=== PATIENT | female | born 1935 | race Caucasian/White ===

== ENCOUNTER 2020-04-25 09:31 | Outpatient (REF) | payer MEDICARE, SELFPAY ==
[2020-04-25 11:59] LABS: Alanine Aminotransferase 10 U/L (0-31); Albumin Level 4.6 g/dL (3.5-5.0); Alkaline Phosphatase 66 U/L (39-117); Anion Gap 16 (12-20); Aspartate Amino Transferase 19 U/L (5-31); Bilirubin Total 0.7 mg/dL (0.0-1.0); Blood Urea Nitrogen 30 mg/dL (9-16); Calcium 9.5 mg/dL (8.4-10.2); Carbon Dioxide 25 mmol/L (22-29); Chloride 101 mmol/L (96-108); Estimated Glomerular Filt Rate 38; Glucose Random 106 mg/dL (60-115); Potassium 4.7 mmol/l (3.3-5.1); Sodium 137 mmol/L (135-145)
[2020-04-25 12:03] LABS: Vitamin D 25-OH Total 47.4 ng/mL (>30)
== END 2020-04-25 09:32 | disposition home or self-care (01) ==
LOC: HO.HMGCLDS 09:31
PROVIDERS: PCP Internal Medicine; Visit Provider Internal Medicine
DX: M81.0 Age-related osteoporosis without current pathological fracture (principal); E55.9 Vitamin D deficiency, unspecified
CPT/HCPCS: 80053; 82306

== ENCOUNTER → 2020-05-01 11:25 | Outpatient (BNVA) | payer MEDICARE, SELFPAY | PROVIDERS: PCP Internal Medicine; Referring Provider Internal Medicine; Visit Provider Internal Medicine | DX: Z13.89 Encounter for screening for other disorder (principal) | CPT/HCPCS: Q3014 ==

== ENCOUNTER 2020-05-11 09:00 | Outpatient (REF) | payer MEDICARE, SELFPAY ==
--- NOTE | 2020-05-11 09:05 | MM_ITS ---
EXAMINATION: BONE DENSITOMETRY CLINICAL INDICATION: Osteoporosis. COMPARISON: Previous BD dated 04/14/2018 (spine), 04/22/2018 (left hip), and baseline BD dated 11/13/2006. TECHNIQUE: Using a [employer] DXA System (software version: 13.1) manufactured by [employer], dual-energy x-ray absorptiometry was performed of the lumbar spine and left hip. The images are of good technical quality. Summary results are attached. FINDINGS: AP SPINE L1-L2 (excluding L3 and L4): The data of L1-L4 has been changed to exclude the L3 and L4 vertebral bodies, because degenerative changes at these levels may cause overestimation of lumbar spine density. Current: BMD 0.840 g/cm2, Z-score 0.0, T-score -2.7, osteoporosis, 36.6% increase from previous, 9.7% increase from baseline (<5% change is not significant). Prior: BMD 0.615 g/cm2. Baseline: BMD 0.766 g/cm2. LEFT FEMUR, NECK: Current: BMD 0.634 g/cm2, Z-score -0.1, T-score -2.9, osteoporosis. Prior: BMD 0.608 g/cm2. Baseline: BMD 0.734 g/cm2. LEFT FEMUR, TOTAL: Current: BMD 0.630 g/cm2, Z-score -0.2, T-score -3.0, osteoporosis, 7.9% increase from previous, 18.2% decrease from baseline (<5% change is not significant). Prior: BMD 0.584 g/cm2. Baseline: BMD 0.770 g/cm2. IDENTIFIED RISK FACTORS: Osteoporosis. Early menopause, secondary osteoporosis. HISTORY OF FRACTURE: None listed. MEDICATIONS: Calcium supplements or multivitamin, vitamin D. MM/XR DEXA axial skeleton IMPRESSION: 1. DIAGNOSIS: Osteoporosis based on the lowest T-score value of -3.0 in the total femur applying World Health Organization criteria. 2. 10-YEAR FRACTURE RISK PREDICTION, FRAX: Major osteoporotic fracture (clinical spine, forearm, hip or shoulder) 17.7%. Hip fracture 7.7%. 3. Treatment Recommendations: NOF guidelines recommend consideration for treatment in postmenopausal women and men age 50 and older presenting with the following: -A hip or vertebral (clinical or morphometric) fracture. -T-score less than or equal to -2.5 at the femoral neck or spine after appropriate evaluation to exclude secondary causes. -Low bone mass at the hip or spine and a 10-year fracture probability by FRAX of greater than or equal to 3% for hip fracture or greater than or equal to 20% for major osteoporotic fracture based on the [place] adapted WHO algorithm. 4. Other Recommendations: All treatment decisions require clinical judgment and consideration of individual patient factors, including patient preferences, comorbidities, previous drug use, risk factors not captured in the FRAX model (e.g. frailty, falls, vitamin D deficiency, increased bone turnover, interval significant decline in bone density) and possible under or overestimation of fracture risk by FRAX. Additional medical evaluation for secondary cause of low bone mineral density may be appropriate. FUTURE SCAN RECOMMENDATION: People with diagnosed cases of osteoporosis or at high risk for fracture should have regular bone mineral density tests. For patients eligible for Medicare, routine testing is allowed once every 2 years. The testing frequency can be increased to one year for patients who have rapidly progressing disease, those who are receiving or discontinuing medical therapy to restore bone mass, or have additional risk factors.
== END 2020-05-11 09:01 | disposition home or self-care (01) ==
LOC: HO.MAMMO 09:00
PROVIDERS: Visit Provider Internal Medicine
DX: M81.0 Age-related osteoporosis without current pathological fracture (principal)
CPT/HCPCS: 77080

== ENCOUNTER → 2020-06-21 11:39 | Outpatient (BNVA) | payer MEDICARE, SELFPAY | PROVIDERS: PCP Internal Medicine; Visit Provider Internal Medicine | DX: Z76.89 Persons encountering health services in other specified circumstances (principal) | CPT/HCPCS: Q3014 ==

== ENCOUNTER 2020-07-04 10:03 | Outpatient (REF) | payer MEDICARE, SELFPAY ==
[2020-07-04 12:10] LABS: Albumin Level 4.4 g/dL (3.5-5.0); Blood Urea Nitrogen 24 mg/dL (9-16); Calcium 9.3 mg/dL (8.4-10.2); Estimated Glomerular Filt Rate 41; Phosphorus 3.7 mg/dL (2.7-4.5)
[2020-07-04 12:13] LABS: Vitamin D 25-OH Total 39.2 ng/mL (>30)
[2020-07-06 12:01] LABS: Calcium (PTHI) 9.6 mg/dL (8.6-10.4); PTHI 37 pg/mL (14-64)
== END 2020-07-04 10:04 | disposition home or self-care (01) ==
LOC: HO.HMGCLDS 10:03
PROVIDERS: PCP Internal Medicine; Visit Provider Internal Medicine
DX: M81.0 Age-related osteoporosis without current pathological fracture (principal); E55.9 Vitamin D deficiency, unspecified
CPT/HCPCS: 36415; 82040; 82306; 82310; 82565; 83970; 84100; 84520

== ENCOUNTER 2020-08-09 09:00 | Outpatient (REF) | payer OTHER, SELFPAY ==
[2020-08-09 17:51] LABS: Alanine Aminotransferase 13 U/L (0-31); Anion Gap 14 (12-20); Aspartate Amino Transferase 14 U/L (5-31); Blood Urea Nitrogen 26 mg/dL (9-16); Calcium 9.4 mg/dL (8.4-10.2); Carbon Dioxide 25 mmol/L (22-29); Chloride 105 mmol/L (96-108); Cholesterol 196 mg/dL; Estimated Glomerular Filt Rate 36; Glucose Fasting 102 mg/dL (60-99); HDL Cholesterol 76 mg/dL; LDL Cholesterol Calculated 98 mg/dl; Potassium 4.7 mmol/L (3.3-5.1); Sodium 139 mmol/L (135-145); Triglycerides 114 mg/dL
[2020-08-09 18:05] LABS: Vitamin D 25-OH Total 40.3 ng/mL (>30)
== END 2020-08-09 09:01 | disposition home or self-care (01) ==
LOC: HO.HMGCLDS 09:00
PROVIDERS: PCP Internal Medicine; Visit Provider Internal Medicine
DX: E78.5 Hyperlipidemia, unspecified (principal); I10 Essential (primary) hypertension; M81.0 Age-related osteoporosis without current pathological fracture
CPT/HCPCS: 36415; 80048; 80061; 82306; 84450; 84460

== ENCOUNTER → 2020-10-16 10:04 | Outpatient (BNVA) | payer OTHER, SELFPAY | PROVIDERS: PCP Internal Medicine; Visit Provider Internal Medicine | CPT/HCPCS: Q3014 ==

== ENCOUNTER → 2020-10-31 09:18 | Outpatient (BNVA) | payer OTHER, SELFPAY | PROVIDERS: PCP Internal Medicine; Visit Provider Nurse Practitioner Gerontology | DX: M81.0 Age-related osteoporosis without current pathological fracture (principal) | CPT/HCPCS: 96372 ==

== ENCOUNTER 2020-11-14 08:32 | Outpatient (REF) | payer OTHER, SELFPAY ==
[2020-11-14 12:08] LABS: Albumin Level 4.6 g/dL (3.5-5.0); Calcium 10.1 mg/dL (8.4-10.2); Estimated Glomerular Filt Rate 41
[2020-11-14 12:11] LABS: Vitamin D 25-OH Total 48.4 ng/mL (>30)
[2020-11-15 13:51] LABS: Calcium (PTHI) 9.5 mg/dL (8.6-10.4); PTHI 32 pg/mL (14-64)
== END 2020-11-14 08:33 | disposition home or self-care (01) ==
LOC: HO.HMGCLDS 08:32
PROVIDERS: PCP Internal Medicine; Visit Provider Internal Medicine
DX: M81.0 Age-related osteoporosis without current pathological fracture (principal); E55.9 Vitamin D deficiency, unspecified
CPT/HCPCS: 36415; 82040; 82306; 82310; 82565; 83970

== ENCOUNTER 2021-05-09 09:06 | Outpatient (REF) | payer OTHER, SELFPAY ==
[2021-05-09 11:25] LABS: MANUAL DIFF FLAG NO
[2021-05-09 11:30] LABS: Basophils Absolute Auto 0.1 X10*3/uL (0.0-0.2); Eosinophils Percent Auto 12.6 % (0-4); Hematocrit 35.6 % (37.0-47.0); Hemoglobin 11.4 g/dl (12.0-16.0); Imm Gran Abs Auto 0.03 X10*3/uL (0.00-0.03); Imm Gran Pct Auto 0.4 % (0.0-0.4); Lymphocytes Absolute Auto 2.8 X10*3/uL (1.2-4.9); Lymphocytes Percent Auto 36.5 % (20-40); Mean Corpuscular Hemoglobin 30.6 pg (27.0-33.0); Mean Corpuscular Volume 95.7 fL (80.0-98.0); Mean Platelet Volume 11.1 fL (9.4-12.3); Monocytes Absolute Auto 0.5 X10*3/uL (0.1-1.2); Monocytes Percent Auto 6.9 % (2-11); Neutrophils Absolute Auto 3.3 x10*3/uL (2.0-8.3); Neutrophils Percent Auto 42.6 % (45-73); Platelet Count 299 X10*3/uL (160-400); Red Blood Count 3.72 X10*6/uL (4.20-5.50); Red Cell Distribution Width 12.9 % (11.0-16.0); White Blood Count 7.7 X10*3/uL (4.8-10.8)
[2021-05-09 12:03] LABS: Alanine Aminotransferase 16 U/L (0-31); Albumin Level 4.5 g/dL (3.5-5.0); Alkaline Phosphatase 48 U/L (39-117); Anion Gap 14 (12-20); Aspartate Amino Transferase 18 U/L (5-31); Bilirubin Total 0.8 mg/dL (0.0-1.0); Blood Urea Nitrogen 23 mg/dL (9-16); Calcium 10.5 mg/dL (8.4-10.2); Carbon Dioxide 26 mmol/L (22-29); Chloride 105 mmol/L (96-108); Cholesterol 213 mg/dL; Estimated Glomerular Filt Rate 34; Glucose Fasting 108 mg/dL (60-99); HDL Cholesterol 77 mg/dL; LDL Cholesterol Calculated 115 mg/dl; Potassium 4.5 mmol/L (3.3-5.1); Sodium 140 mmol/L (135-145); Total Protein 6.7 g/dL (6.5-8.0); Triglycerides 108 mg/dL
[2021-05-10 12:26] LABS: Calcium (PTHI) 10.2 mg/dL (8.6-10.4); PTHI 23 pg/mL (14-64)
[2021-05-15 05:06] LABS: N-Telopeptide 18 (see note); NTXCreaRU 99 mg/dL (20-275)
== END 2021-05-09 09:07 | disposition home or self-care (01) ==
LOC: HO.HMGCLDS 09:06
PROVIDERS: Internal Medicine; PCP Internal Medicine; Visit Provider Internal Medicine
DX: I10 Essential (primary) hypertension (principal); E55.9 Vitamin D deficiency, unspecified; Z00.00 Encounter for general adult medical examination without abnormal findings; R73.01 Impaired fasting glucose; M81.0 Age-related osteoporosis without current pathological fracture; E78.5 Hyperlipidemia, unspecified; N18.9 Chronic kidney disease, unspecified; Z23 Encounter for immunization; Z79.899 Other long term (current) drug therapy
CPT/HCPCS: 36415; 80048; 80053; 80061; 82306; 82523; 83970; 85025; 96372; 99212

== ENCOUNTER → 2021-11-07 09:21 | Outpatient (BNVA) | payer OTHER, SELFPAY | PROVIDERS: PCP Internal Medicine; Visit Provider Internal Medicine | DX: M81.0 Age-related osteoporosis without current pathological fracture (principal); N18.9 Chronic kidney disease, unspecified; E55.9 Vitamin D deficiency, unspecified | CPT/HCPCS: Q3014 ==

== ENCOUNTER 2021-11-08 07:19 | Outpatient (REF) | payer OTHER, SELFPAY ==
[2021-11-08 11:57] LABS: Alanine Aminotransferase 12 U/L (0-31); Albumin Level 4.5 g/dL (3.5-5.0); Alkaline Phosphatase 39 U/L (39-117); Anion Gap 14 (12-20); Aspartate Amino Transferase 18 U/L (5-31); Bilirubin Total 0.8 mg/dL (0.0-1.0); Blood Urea Nitrogen 26 mg/dL (9-16); Carbon Dioxide 25 mmol/L (22-29); Chloride 103 mmol/L (96-108); Estimated Glomerular Filt Rate 39; Glucose Random 108 mg/dL (60-115); Phosphorus 4.1 mg/dL (2.7-4.5); Potassium 4.9 mmol/L (3.3-5.1); Sodium 137 mmol/L (135-145); Total Protein 6.7 g/dL (6.5-8.0)
[2021-11-08 12:01] LABS: Vitamin D 25-OH Total 65.1 ng/mL (>30)
[2021-11-09 13:08] LABS: Calcium (PTHI) 10.4 mg/dL (8.6-10.4); PTHI 24 pg/mL (16-77)
== END 2021-11-08 07:20 | disposition home or self-care (01) ==
LOC: HO.HMGCLDS 07:19
PROVIDERS: Visit Provider Internal Medicine
DX: E55.9 Vitamin D deficiency, unspecified (principal); M81.0 Age-related osteoporosis without current pathological fracture
CPT/HCPCS: 36415; 80053; 82306; 83970; 84100

== ENCOUNTER → 2021-11-12 10:06 | Outpatient (BNVA) | payer OTHER, SELFPAY | PROVIDERS: PCP Internal Medicine; Visit Provider Internal Medicine | DX: M81.0 Age-related osteoporosis without current pathological fracture (principal) | CPT/HCPCS: 96372 ==

== ENCOUNTER 2022-05-11 08:42 | Outpatient (REF) | payer OTHER, SELFPAY ==
[2022-05-11 11:28] LABS: Alanine Aminotransferase 13 U/L (0-31); Albumin Level 4.6 g/dL (3.5-5.0); Alkaline Phosphatase 42 U/L (39-117); Anion Gap 14 (12-20); Aspartate Amino Transferase 18 U/L (5-31); Bilirubin Total 0.6 mg/dL (0.0-1.0); Blood Urea Nitrogen 28 mg/dL (9-16); Calcium 10.1 mg/dL (8.4-10.2); Carbon Dioxide 25 mmol/L (22-29); Chloride 105 mmol/L (96-108); Estimated Glomerular Filt Rate 41; Glucose Random 105 mg/dL (60-115); Phosphorus 3.3 mg/dL (2.7-4.5); Potassium 4.6 mmol/L (3.3-5.1); Sodium 139 mmol/L (135-145); Total Protein 6.7 g/dL (6.5-8.0)
[2022-05-11 11:46] LABS: Vitamin D 25-OH Total 87.5 ng/mL (>30)
[2022-05-13 15:39] LABS: Calcium (PTHI) 9.9 mg/dL (8.6-10.4); PTHI 30 pg/mL (16-77)
[2022-05-16 17:08] LABS: N-Telopeptide 14 (see note); NTXCreaRU 111 mg/dL (20-275)
== END 2022-05-11 08:43 | disposition home or self-care (01) ==
LOC: HO.HMGCLDS 08:42
PROVIDERS: PCP Internal Medicine; Visit Provider Internal Medicine
DX: M81.0 Age-related osteoporosis without current pathological fracture (principal); E55.9 Vitamin D deficiency, unspecified
CPT/HCPCS: 36415; 80053; 82306; 82523; 83970; 84100

== ENCOUNTER → 2022-05-13 09:59 | Outpatient (BNVA) | payer OTHER, SELFPAY | PROVIDERS: PCP Internal Medicine; Visit Provider Internal Medicine | DX: M81.0 Age-related osteoporosis without current pathological fracture (principal); N18.9 Chronic kidney disease, unspecified; E55.9 Vitamin D deficiency, unspecified; Z78.0 Asymptomatic menopausal state; Z79.899 Other long term (current) drug therapy | CPT/HCPCS: 96372; 99212 ==

== ENCOUNTER 2022-05-21 14:06 | Outpatient (REF) | payer OTHER, SELFPAY ==
--- NOTE | ~2022-05-21 | MM_ITS ---
EXAMINATION: BONE DENSITOMETRY CLINICAL INDICATION: Age-related osteoporosis without current pathological fracture. COMPARISON: Previous BD dated 05/11/2020 and baseline BD dated 11/13/2006. TECHNIQUE: Using a [employer]On DXA System (software version: 13.1) manufactured by [employer], dual-energy x-ray absorptiometry was performed of the lumbar spine, left hip and left forearm radius 33%. The images are of good technical quality. Summary results are attached. FINDINGS: AP SPINE L1-L2 (excluding L3 and L4): The data of L1-L4 has been changed to exclude the L3 and L4 vertebral bodies, because degenerative changes at these levels may cause overestimation of lumbar spine density. Current: BMD 0.941 g/cm2, Z-score 0.9, T-score -1.9, osteopenia, 12.0% increase from previous, 22.8% increase from baseline (<5% change is not significant). Prior: BMD 0.840 g/cm2. Baseline: BMD 0.766 g/cm2. LEFT FEMUR, NECK: Current: BMD 0.716 g/cm2, Z-score 0.6, T-score -2.3, osteopenia. Prior: BMD 0.634 g/cm2. Baseline: BMD 0.734 g/cm2. LEFT FEMUR, TOTAL: Current: BMD 0.635 g/cm2, Z-score -0.1, T-score -3.0, osteoporosis, 0.8% increase from previous, 17.5% decrease from baseline (<5% change is not significant). Prior: BMD 0.630 g/cm2. Baseline: BMD 0.770 g/cm2. LEFT FOREARM RADIUS 33%: BMD 0.440 g/cm2, Z-score -1.8, T-score -5.0, osteoporosis. Prior: Not previously measured. IDENTIFIED RISK FACTORS: Osteoporosis. Dementia. Secondary osteoporosis (early menopause, hyperthyroidism). HISTORY OF FRACTURE: None listed. MEDICATIONS: Calcium supplement or multivitamin. Vitamin D. MM/XR DEXA appendicular skeleton IMPRESSION: 1. DIAGNOSIS: Osteoporosis based on the lowest T-score value of -5.0 in the left forearm radius 33% applying World Health Organization criteria. 2. 10-YEAR FRACTURE RISK PREDICTION, FRAX: According to the guidelines, FRAX calculation should only be performed on patients in the osteopenia bone density category. Therefore, FRAX was not performed on this patient.? 3. Treatment Recommendations: NOF guidelines recommend consideration for treatment in postmenopausal women and men age 50 and older presenting with the following: -A hip or vertebral (clinical or morphometric) fracture. -T-score less than or equal to -2.5 at the femoral neck or spine after appropriate evaluation to exclude secondary causes. -Low bone mass at the hip or spine and a 10-year fracture probability by FRAX of greater than or equal to 3% for hip fracture or greater than or equal to 20% for major osteoporotic fracture based on the [place] adapted WHO algorithm. 4. Other Recommendations: All treatment decisions require clinical judgment and consideration of individual patient factors, including patient preferences, comorbidities, previous drug use, risk factors not captured in the FRAX model (e.g. frailty, falls, vitamin D deficiency, increased bone turnover, interval significant decline in bone density) and possible under or overestimation of fracture risk by FRAX. Additional medical evaluation for secondary cause of low bone mineral density may be appropriate. FUTURE SCAN RECOMMENDATION: People with diagnosed cases of osteoporosis or at high risk for fracture should have regular bone mineral density tests. For patients eligible for Medicare, routine testing is allowed once every 2 years. The testing frequency can be increased to one year for patients who have rapidly progressing disease, those who are receiving or discontinuing medical therapy to restore bone mass, or have additional risk factors.
== END 2022-05-21 14:07 | disposition home or self-care (01) ==
LOC: HO.MAMMO 14:06
PROVIDERS: PCP Internal Medicine; Visit Provider Internal Medicine
DX: Z13.820 Encounter for screening for osteoporosis (principal); Z78.0 Asymptomatic menopausal state; M81.0 Age-related osteoporosis without current pathological fracture
CPT/HCPCS: 77081

== ENCOUNTER 2022-11-11 10:08 | Outpatient (AMB) | payer OTHER, SELFPAY ==
--- NOTE | 2022-11-11 10:08 | MHC.OFFVIS ---
Intake Intake Visit Reasons: F/U Osteoporosis with Prolia Allergies No Known Allergies Allergy (Verified 11/11/22 10:16) Medication List - Last Reconciled 11/11/22 by Lizet Bearden, DO atorvastatin 10 mg PO DAILY coenzyme Q10 (Ultra CoQ10) 50 mg PO DAILY denosumab (Prolia) 60 mg subcut [id number] ibuprofen (Advil) 200 mg PO Q6H PRN lisinopril 10 mg PO DAILY HPI HPI Comments History of Present Illness Details 87 YO Female with PMHx Osteoporosis is seen in F/U for Osteoporosis. First diagnosed in 2004 with her first screening DEXA scan. Received treatment in the past with Fosamax, beginning in 2009 for 3 years, and then this was stopped. She reports that it was started again in April of 2018 after her most recent BMD revealed severe Osteoporosis of the spine, with Osteoporosis of the hip, and a significant decline in BMD in all areas. Tolerated treatment well without complication, but then stopped it again after 3-4 months of therapy. She began Tymlos 02/04/2019 and completed therapy 10/2020. She then transitioned to Prolia 10/31/2020. She has received 4 doses so far. After her initial consultation with me she had a full workup for secondary causes of Osteoporosis. This did reveal low urine calcium, but this was an inadequate collection. She also was found to have high normal serum Calcium, but this has remained WNL. No history of pathologic fracture or ONJ. Has 3 servings of dietary calcium per day in the form of an 8 oz glass of milk, a 4 oz yogurt, and 1 oz of cheese. Takes Calcium Carbonate 600 mg PO daily. Takes 1000 IU of Vitamin D daily. Denies ever using PPI, anticoagulant, antiepileptic or glucocorticoid medication. Does weight bearing exercise 5-7 days per week in the form of walking, and also does an exercise class at the [facility] center. Fracture history: Denies. Height loss: Denies. [employer] WORK[employer] history: Menarche age 16. Menses was always regular. , did not breastfeed. Menopause was age 39. Never used HRT. History of Kidney stones: Denies. Family history of Osteoporosis or hip fracture. Has full dentures. Does see the dentist twice a year. DXA: 05/21/2022 FINDINGS: AP SPINE L1-L2 (excluding L3 and L4): The data of L1-L4 has been changed to exclude the L3 and L4 vertebral bodies, because degenerative changes at these levels may cause overestimation of lumbar spine density. Current: BMD 0.941 g/cm2, Z-score 0.9, T-score -1.9, osteopenia, 12.0% increase from previous, 22.8% increase from baseline (<5% change is not significant). Prior: BMD 0.840 g/cm2. Baseline: BMD 0.766 g/cm2. LEFT FEMUR, NECK: Current: BMD 0.716 g/cm2, Z-score 0.6, T-score -2.3, osteopenia. Prior: BMD 0.634 g/cm2. Baseline: BMD 0.734 g/cm2. LEFT FEMUR, TOTAL: Current: BMD 0.635 g/cm2, Z-score -0.1, T-score -3.0, osteoporosis, 0.8% increase from previous, 17.5% decrease from baseline (<5% change is not significant). Prior: BMD 0.630 g/cm2. Baseline: BMD 0.770 g/cm2. LEFT FOREARM RADIUS 33%: BMD 0.440 g/cm2, Z-score -1.8, T-score -5.0, osteoporosis. Prior:? Not previously measured. Labs: Laboratory Tests 05/09/21 05/09/21 11/08/21 09:28 09:28 09:32 Creatinine Estimated GFR 34 Albumin N-Telopeptide X-li nked 18 25-OH Vitamin D To geovani PTH Intact 24 Calcium (PTH Intac t) 10.4 05/11/22 08:48 Creatinine 1.25 :Estimated GFR 41 Albumin 4.6 N-Telopeptide X-li nked 25-OH Vitamin D To geovani 87.5 PTH Intact Calcium (PTH Intac t) PFSH Medical History CKD (chronic kidney disease) Dyslipidemia Impaired fasting glucose Memory deficit Osteoporosis Vitamin D deficiency Surgical History No pertinent past surgical history Family History Father No problems noted. Mother No problems noted. Social History Housing: Apartment Alcohol intake: never Patient Tobacco Use Status: Never used Tobacco e-Cigarette/Vaping Use: Never Used Current occupational status: retired Cognitive needs: No Hearing needs: Yes Vision needs: Yes Assessment & Plan Assessment & Plan (1) Osteoporosis: Code(s): M81.0 - Age-related osteoporosis without current pathological fracture Qualifiers: Osteoporosis type: unspecified Presence of current pathological fracture: unspecified Qualified Code(s): M81.0 - Age-related osteoporosis without current pathological fracture Plan: Patient with severe Osteoporosis of the spine, and Osteoporosis of the hip. She completed 18 months of Tymlos therapy and has transitioned to Prolia with 4 doses so far. She received her last dose 05/13/2022. She is due now. She will repeat labs now and then will be scheduled for her Prolia. She will then F/U 6 months later for her next injection. We discussed potential ADRs of flu like symptoms with body aches, osteonecrosis of the jaw and atypical fracture. All questions were answered. All of her questions were answered. She is in agreement with this plan of care. I spent 20 minutes in reviewing the record, speaking with the patient and documenting in the medical record, including 5 minutes on the phone with the Patient. (2) CKD (chronic kidney disease): Code(s): N18.9 - Chronic kidney disease, unspecified Qualifiers: Chronic kidney disease stage: unspecified stage Qualified Code(s): N18.9 - Chronic kidney disease, unspecified Plan: Patient with an abrupt decline in her GFR. Bisphosphonates are contraindicated. Telehealth Telehealth Location of provider rendering services: practice address Location of patient: address on file Patient Identification confirmed using: Name, : Yes Telehealth method: voice only Patient verbally consented to treatment: Yes Patient verbally consented to billing insurance company: Yes Patient informed of any privacy concerns related to visit: Yes Coding Level of Care Code Tele Est Pt Level 3 (11834) Diagnoses Osteoporosis M81.0 Osteoporosis type: unspecified Presence of current pathological fracture: unspecified CKD (chronic kidney disease) N18.9 Chronic kidney disease stage: unspecified stage
== END 2022-11-11 10:22 | disposition home or self-care (01) ==
LOC: HO.ENCR 10:08
PROVIDERS: PCP Internal Medicine; Visit Provider Internal Medicine
DX: M81.0 Age-related osteoporosis without current pathological fracture (principal); N18.9 Chronic kidney disease, unspecified
CPT/HCPCS: 99443

== ENCOUNTER → 2022-11-11 10:08 | Outpatient (BNVA) | payer OTHER, SELFPAY | PROVIDERS: PCP Internal Medicine; Visit Provider Internal Medicine ==

== ENCOUNTER 2022-11-12 08:50 | Outpatient (REF) | payer OTHER, SELFPAY ==
[2022-11-12 12:02] LABS: Alanine Aminotransferase 16 U/L (0-31); Albumin Level 4.6 g/dL (3.5-5.0); Alkaline Phosphatase 43 U/L (39-117); Anion Gap 15 (12-20); Aspartate Amino Transferase 20 U/L (5-31); Bilirubin Total 0.7 mg/dL (0.0-1.0); Blood Urea Nitrogen 28 mg/dL (9-16); Calcium 10.3 mg/dL (8.4-10.2); Carbon Dioxide 21 mmol/L (22-29); Chloride 106 mmol/L (96-108); Estimated Glomerular Filt Rate 43; Glucose Random 111 mg/dL (60-115); Phosphorus 3.1 mg/dL (2.7-4.5); Potassium 4.2 mmol/L (3.3-5.1); Sodium 138 mmol/L (135-145); Total Protein 6.9 g/dL (6.5-8.0)
[2022-11-12 12:06] LABS: Vitamin D 25-OH Total 123.5 ng/mL (>30)
[2022-11-14 04:38] LABS: Calcium (PTHI) 10.6 mg/dL (8.6-10.4); PTHI 33 pg/mL (16-77)
[2022-11-20 16:38] LABS: N-Telopeptide 23 (see note); NTXCreaRU 185 mg/dL (20-275)
== END 2022-11-12 08:51 | disposition home or self-care (01) ==
LOC: HO.HMGCLDS 08:50
PROVIDERS: PCP Internal Medicine; Visit Provider Internal Medicine
DX: M81.0 Age-related osteoporosis without current pathological fracture (principal); E55.9 Vitamin D deficiency, unspecified
CPT/HCPCS: 36415; 80053; 82306; 82523; 83970; 84100

== ENCOUNTER 2022-11-15 08:45 | Outpatient (AMB) | payer OTHER, SELFPAY ==
--- NOTE | 2022-11-15 09:20 | AM.OFFVISNUR ---
Intake Intake Visit Reasons: Prolia Allergies No Known Allergies Allergy (Verified 11/11/22 10:16) Office Meds Prolia Performing Provider: Lizet Bearden DO Administered by: Dominik Edge RN on 11/15/22 09:10 Dose Route Admin Location Lot Number Expiration Date NDC Customer Solutions Architect 60 mg subcut left arm [id number] 01/02/25 05608-878-93 AMGEN Comments: consent obtained for prolia injection Coding Diagnoses Assessment & Plan Assessment & Plan Orders: Orders AMB Denosumab Injection Patient Supplied Today M81.0 - Age-related osteoporosis without current pathological fracture
== END 2022-11-15 09:15 | disposition home or self-care (01) ==
PROVIDERS: PCP Internal Medicine; Visit Provider Internal Medicine
DX: M81.0 Age-related osteoporosis without current pathological fracture (principal)
CPT/HCPCS: J0897

== ENCOUNTER → 2022-11-15 08:45 | Outpatient (BNVA) | payer OTHER, SELFPAY | PROVIDERS: PCP Internal Medicine; Visit Provider Internal Medicine | DX: M81.0 Age-related osteoporosis without current pathological fracture (principal) | CPT/HCPCS: 96372 ==

== ENCOUNTER 2022-11-30 09:03 | Outpatient (REF) | payer OTHER, SELFPAY ==
[2022-11-30 11:30] LABS: Estimated Glomerular Filt Rate 46
[2022-12-02 13:22] LABS: Calcium (PTHI) 9.7 mg/dL (8.6-10.4); PTHI 44 pg/mL (16-77)
== END 2022-11-30 09:04 | disposition home or self-care (01) ==
LOC: HO.HMGCLDS 09:03
PROVIDERS: PCP Internal Medicine; Visit Provider Internal Medicine
DX: M81.0 Age-related osteoporosis without current pathological fracture (principal)
CPT/HCPCS: 36415; 82310; 82565; 83970

== ENCOUNTER 2023-02-06 09:59 | Outpatient (AMB) | payer OTHER, SELFPAY ==
[2023-02-06 10:01] VITALS: BP 130/60; PULSE 72; O2SAT 100; BMI 18.6
--- NOTE | 2023-02-06 10:01 | MHC.PC.OV ---
Vital Signs 02/06/23 10:01 Height 4 ft 10 in Weight 89 lb BMI 18.6 BP 130/60 Blood Pressure Location Rt brachial Position Sitting Pulse 72 Pulse Source Pulse Oximeter Pulse Oximetry (%) 100 Oxygen Delivery Method Room Air Intake Visit Reasons: follow up needs meds Intake Note: patient is here today for med f/u Allergies No Known Allergies Allergy (Verified 02/06/23 10:44) Medication List - Last Reconciled 02/06/23 by Kassidy Moreno MD atorvastatin 10 mg PO DAILY coenzyme Q10 (Ultra CoQ10) 50 mg PO DAILY denosumab (Prolia) 60 mg subcut [id number] ibuprofen (Advil) 200 mg PO Q6H PRN lisinopril 10 mg PO DAILY Tobacco use date assessed: 02/06/23 Fall risk assessment: No Falls in past year Last assessed Fall Risk: 02/06/23 Dental Screening Dental Screen Date: 02/06/23 Did you have a dental visit in the last 12 months?: No Did you have a dental problem in the last 6 months where you did not have access to dental care?: No Was dental information given to patient?: Patient has dentist [facility] Medical History (Updated 02/06/23 @ 11:00 by Kassidy Moreno MD) Hearing impaired Memory deficit Dyslipidemia Impaired fasting glucose CKD (chronic kidney disease) Vitamin D deficiency Osteoporosis Surgical History No pertinent past surgical history Family History Father No problems noted. Mother No problems noted. Social History Housing: Apartment Alcohol intake: never Patient Tobacco Use Status: Never used Tobacco e-Cigarette/Vaping Use: Never Used Current occupational status: retired Cognitive needs: No Hearing needs: Yes Vision needs: Yes Questionnaire PHQ-9 Over the last 2 weeks, how often have you been bothered by any of the following problems? 1. Little interest or pleasure in doing things: not at all 2. Feeling down, depressed, or hopeless: not at all 3. Trouble falling or staying asleep, or sleeping too much: not at all 4. Feeling tired or having little energy: not at all 5. Poor appetite or overeating: not at all 6. Feeling bad about yourself - or that you are a failure or have let yourself or your family down: not at all 7. Trouble concentrating on things, such as reading the newspaper or watching television: not at all 8. Moving or speaking so slowly that other people could have noticed. Or the opposite - being so fidgety or restless that you have been moving around a lot more than usual: not at all 9. Thoughts that you would be better off or of hurting yourself in some way: not at all Total score: 0 07877 - PHQ-9 Billing: Yes Source: Developed by Drs. Carlitos Mejia, Oumou Bowen, Brad Austin and colleagues, with an educational otilia from [employer]. Thrive Questionnaire Date Thrive assessed: 02/06/23 I am a: Patient What is your living situation today?: I have a steady place to live Within the past 12 months, did the food you bought not last and you didn't have the money to get more?: Never true Within the past 12 months, did you worry whether your food would run out before you got money to buy more?: Never true Do you have trouble paying for medicines?: No Do you have trouble getting transportation to medical appointments?: No Do you have trouble paying your heating and electricity bill?: No Do you have trouble taking care of your child, family member or friend?: No Do you have trouble with day-to-day activities such as bathing, preparing meals, shopping, managing finances, etc.?: No Are you currently unemployed and looking for a job?: No Are you interested in more education?: No AUDIT C Alcohol Use Questionnaire (AUDIT-C) 1. How often do you have a drink containing alcohol?: Never Total Score: 0 MONCHO-7 AMB Questionnaire MONCHO-7 Date MONCHO - 7 assessed: 02/06/23 Feeling nervous, anxious, or on edge: 0 = Not at all Not being able to stop or control worryin = Not at all Worrying too much about different things: 0 = Not at all Trouble relaxin = Not at all Being so restless that it is hard to sit still: 0 = Not at all Becoming easily annoyed or irritable: 1 = Several days Feeling afraid as if something awful might happen: 0 = Not at all Total MONCHO-7 score (0-4 normal; 5-9 mild; 10-14 moderate; 15-21 severe): 1 Source: Developed by Drs. Carlitos Mejia, Oumou Bowen, Brad Austin and colleagues, with an educational otilia from [employer] [place]. MONCHO-7 Assessment Billing MONCHO-7 Assessment Tool: MONCHO-7 Assessment 94063 Physical exam (Primary Care) Vital Signs: Last Vital Signs Pulse 72 02/06/23 10:01 BP 130/60 02/06/23 10:01 Pulse Ox 100 02/06/23 10:01 Oxygen Delivery Method Room Air 02/06/23 10:01 BMI result Body Mass Index 18.6 Tobacco/Smoking Status: Tobacco use Status Tobacco use date assessed 02/06/23 02/06/23 10:22 Patient Tobacco Use Status Never used Tobacco 02/06/23 10:02 e-Cigarette/Vaping Use Never Used 02/06/23 10:02 PHQ-9: PHQ-9 Score PHQ-9: Total score 0 02/06/23 11:01 Thrive Assessment: Date of Thrive Assessment Date Thrive assessed 02/06/23 02/06/23 10:33 Immunizations pneumoc 20-river conj-dip cr(PF) 0.5 mL IM syringe Performing Provider: Kassidy Moreno MD Performing Location: [facility] Administered by: Anca Martins CMA on 02/06/23 11:58 Dose Route Admin Location Dispensed Lot Number Expiration Date [facility] Coat Maker 0.5 mL IM Left Deltoid 0.5 mL [id number] 03/04/24 [employer]/PFIZER VIS Given Date VIS Provided VIS Publication Date 02/06/23 Single Vaccine 21 Eligibility Eligibility Date Funding Source Not [facility] Eligible 02/06/23 Private Assessment and Plan Assessment & Plan (1) Dyslipidemia: Code(s): E78.5 - Hyperlipidemia, unspecified (2) CKD (chronic kidney disease): Code(s): N18.9 - Chronic kidney disease, unspecified Qualifiers: Chronic kidney disease stage: unspecified stage Qualified Code(s): N18.9 - Chronic kidney disease, unspecified (3) Impaired fasting glucose: Code(s): R73.01 - Impaired fasting glucose (4) Need for pneumococcal 20-valent conjugate vaccination: Code(s): Z23 - Encounter for immunization Orders: Orders Lipid Panel Today E78.5 - Hyperlipidemia, unspecified, N18.9 - Chronic kidney disease, unspecified, R73.01 - Impaired fasting glucose Basic Metabolic Panel Fasting Today E78.5 - Hyperlipidemia, unspecified, N18.9 - Chronic kidney disease, unspecified, R73.01 - Impaired fasting glucose Hemoglobin A1c Today R73.01 - Impaired fasting glucose Alanine Aminotransferase Today E78.5 - Hyperlipidemia, unspecified, N18.9 - Chronic kidney disease, unspecified, R73.01 - Impaired fasting glucose Aspartate Amino Transferase Today E78.5 - Hyperlipidemia, unspecified, N18.9 - Chronic kidney disease, unspecified, R73.01 - Impaired fasting glucose Pneumococcal 20 Immunization Today Z23 - Encounter for immunization Medications: Refilled atorvastatin Schedule next PCP appt for future refills 10 mg PO DAILY 90 tabs 3RF lisinopril Schedule next PCP appt for future refills 10 mg PO DAILY 90 tabs 3RF Coding Level of Care Code Est Pt Level 3 (28878) Diagnoses Dyslipidemia E78.5 Chronic kidney disease, unspecified CKD stage N18.9 Chronic kidney disease stage: unspecified stage Impaired fasting glucose R73.01 Need for pneumococcal 20-valent conjugate vaccination Z23 Additional Codes MONCHO-7 Assessment Billing - MONCHO-7 Assessment Tool: MONCHO-7 Assessment [id number] ([id number])
== END 2023-02-06 12:20 | disposition home or self-care (01) ==
PROVIDERS: PCP Internal Medicine; Visit Provider Internal Medicine
DX: Z23 Encounter for immunization (principal)
CPT/HCPCS: 90471; 90677

== ENCOUNTER 2023-02-08 08:45 | Outpatient (REF) | payer OTHER, SELFPAY | END 2023-02-08 08:46 | disposition home or self-care (01) | LOC: HO.HMGCLDS 08:45 | PROVIDERS: PCP Internal Medicine; Visit Provider Internal Medicine | DX: E78.5 Hyperlipidemia, unspecified (principal); R73.01 Impaired fasting glucose; N18.9 Chronic kidney disease, unspecified | CPT/HCPCS: 36415; 80048; 80061; 83036; 84450; 84460 ==

== ENCOUNTER 2023-05-22 12:59 | Outpatient (AMB) | payer OTHER, SELFPAY ==
--- NOTE | 2023-05-22 13:35 | AM.OFFVISNUR ---
Intake Intake Visit Reasons: Prolia Allergies No Known Allergies Allergy (Verified 02/06/23 10:44) Office Meds Prolia 60 mg/mL subcutaneous syringe Performing Provider: Carlitos Ash MD Performing Location: [facility] [place] Endocrinology Administered by: Carleen Tomas LPN on 05/22/23 13:35 Dose Route Admin Location Dispensed Lot Number Expiration Date NDC Titrator 60 mg subcut Right upper arm 1 mL [id number] 10/02/25 AMGEN Coding Assessment & Plan Assessment & Plan Orders: Orders AMB Denosumab Injection Patient Supplied Today M81.0 - Age-related osteoporosis without current pathological fracture
== END 2023-05-22 13:37 | disposition home or self-care (01) ==
PROVIDERS: PCP Internal Medicine; Visit Provider Internal Medicine Endocrinology, Diabetes & Metabolism
DX: M81.0 Age-related osteoporosis without current pathological fracture (principal)

== ENCOUNTER → 2023-05-22 12:59 | Outpatient (BNVA) | payer OTHER, SELFPAY | PROVIDERS: PCP Internal Medicine; Visit Provider Internal Medicine Endocrinology, Diabetes & Metabolism | DX: M81.0 Age-related osteoporosis without current pathological fracture (principal) | CPT/HCPCS: 96372; J0897 ==

== ENCOUNTER 2023-07-08 09:34 | Outpatient (AMB) | payer OTHER, SELFPAY ==
[2023-07-08 09:38] VITALS: BP 125/80; PULSE 80; BMI 18.0
--- NOTE | 2023-07-08 09:38 | MHC.PC.OV ---
Vital Signs 07/08/23 09:38 Height 4 ft 10 in Weight 86 lb BMI 18.0 BP 125/80 Blood Pressure Location Lt brachial Position Sitting Pulse 80 Comment unable to get reading on pulse oximetry due to extremely cold extremities Intake Visit Reasons: Annual PE OVERDUE Intake Note: Patient is here today for her Annual Physical. No Mammogram Last Bone Density 05/21/22 Allergies No Known Allergies Allergy (Verified 07/08/23 13:15) Medication List - Last Reconciled 07/08/23 by Kassidy Moreno MD atorvastatin 10 mg PO DAILY coenzyme Q10 (Ultra CoQ10) 50 mg PO DAILY denosumab (Prolia) 60 mg subcut [id number] ibuprofen (Advil) 200 mg PO Q6H PRN lisinopril 10 mg PO DAILY Tobacco use date assessed: 07/08/23 Fall risk assessment: No Falls in past year Last assessed Fall Risk: 07/08/23 Dental Screening Dental Screen Date: 07/08/23 Did you have a dental visit in the last 12 months?: No Did you have a dental problem in the last 6 months where you did not have access to dental care?: No Was dental information given to patient?: No HPI Annual PE OVERDUE HPI Details 88-year-old lady with PMHx Osteoporosis first diagnosed 2004 with her first screening DEXA scan. She received treatment in the past with Fosamax, beginning in 2009 for 3 years, and then this was stopped, and was started again in April of 2018 for 4 months , after her repeat t BMD revealed severe Osteoporosis of the spine, with Osteoporosis of the hip, and a significant decline in BMD in all areas. Tolerated treatment well without complication, but then stopped it again after 3-4 months of therapy. She was switched Tymlos 02/04/2019 and completed therapy 10/2020. She then transitioned to Prolia 10/31/2020 until present time . Her last bone density scan done 05/21/2022 showed osteopenia in her AP spine with a T-score of-1.9, with a 12% increase from previous scan; osteopenia in her left femoral neck with a T-score is 2.3; osteoporosis in her left femur with a T-score of -3 and 0.8% increase from previous scan, and left forearm radius with osteoporosis with a T-score of -5. Has no history of fractures in the past. She has an appointment for follow-up with Dr. Ash now scheduled for is 11/20/2023. She has hyperlipidemia currently on atorvastatin. 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 Her last lipids in February 2023 showed elevated LDL cholesterol at 141 mg/dL. She has hypertension, currently stable controlled on lisinopril. It has been noted that she is losing weight, as per patient she eats like a horse , but her male project manager interior design begs to differ. He has started having her drink ensure every day as a supplement and make sure that she eats her meals regularly. Patient states that she has been feeling well, has no complaints at present time. . [facility] Medical History (Updated 02/06/23 @ 11:00 by Kassidy Moreno MD) Hearing impaired Memory deficit Dyslipidemia Impaired fasting glucose CKD (chronic kidney disease) Vitamin D deficiency Osteoporosis Surgical History (Updated 07/08/23 @ 13:34 by Kassidy Moreno MD) History of cataract surgery Family History Father No problems noted. Mother No problems noted. Social History Housing: Apartment Alcohol intake: never Patient Tobacco Use Status: Never used Tobacco e-Cigarette/Vaping Use: Never Used Current occupational status: retired Cognitive needs: No Hearing needs: Yes Vision needs: Yes Questionnaire PHQ-9 Over the last 2 weeks, how often have you been bothered by any of the following problems? 1. Little interest or pleasure in doing things: not at all 2. Feeling down, depressed, or hopeless: not at all 3. Trouble falling or staying asleep, or sleeping too much: several days 4. Feeling tired or having little energy: more than half the days 5. Poor appetite or overeating: not at all 6. Feeling bad about yourself - or that you are a failure or have let yourself or your family down: not at all 7. Trouble concentrating on things, such as reading the newspaper or watching television: several days 8. Moving or speaking so slowly that other people could have noticed. Or the opposite - being so fidgety or restless that you have been moving around a lot more than usual: more than half the days 9. Thoughts that you would be better off or of hurting yourself in some way: not at all Total score: 6 Depression Screening Interpretation: Negative Depression Screening Done: Yes 79097 - PHQ-9 Billing: Yes Source: Developed by Drs. Carlitos Mejia, Oumou Bowen, Brad Austin and colleagues, with an educational otilia from [employer]. Thrive Questionnaire Date Thrive assessed: 07/08/23 I am a: Patient What is your living situation today?: I have a steady place to live Within the past 12 months, did the food you bought not last and you didn't have the money to get more?: Never true Within the past 12 months, did you worry whether your food would run out before you got money to buy more?: Never true Do you have trouble paying for medicines?: No Do you have trouble getting transportation to medical appointments?: No Do you have trouble paying your heating and electricity bill?: No Do you have trouble taking care of your child, family member or friend?: No Do you have trouble with day-to-day activities such as bathing, preparing meals, shopping, managing finances, etc.?: No Are you currently unemployed and looking for a job?: No Are you interested in more education?: No Please select the resources that you would like help with: None Currently or been in a relationship where the following occur: no concerns reported THRIVE Score: 0 AUDIT C Alcohol Use Questionnaire (AUDIT-C) 1. How often do you have a drink containing alcohol?: Never 3. How often do you have six or more drinks on one occasion?: Never Total Score: 0 Score Reviewed/Action Taken: Yes MONCHO-7 AMB Questionnaire MONCHO-7 Date MONCHO - 7 assessed: 07/08/23 Feeling nervous, anxious, or on edge: 1 = Several days Not being able to stop or control worryin = Nearly every day Worrying too much about different things: 1 = Several days Trouble relaxin = Not at all Being so restless that it is hard to sit still: 0 = Not at all Becoming easily annoyed or irritable: 1 = Several days Feeling afraid as if something awful might happen: 0 = Not at all Total MONCHO-7 score (0-4 normal; 5-9 mild; 10-14 moderate; 15-21 severe): 6 Source: Developed by Drs. Carlitos Mejia, Oumou Bowen, Brad Austin and colleagues, with an educational otilia from [employer]. MONCHO-7 Assessment Billing MONCHO-7 Assessment Tool: MONCHO-7 Assessment 81839 Review of Systems Const Reports daytime sleepiness, Denies fatigue, Denies frequent falls, Denies headache(s) and Reports weight loss Eyes Denies change in vision ENT Denies change in voice, Denies headache(s) and Denies hoarseness Card Denies chest pain, Denies irregular heart rhythm, Denies leg edema, Denies lightheadedness and Denies dyspnea Resp Denies cough and Denies dyspnea GI Denies abdominal pain and Denies change in bowel habits Reports no additional complaints Musc Denies myalgias, Denies muscle cramps, Denies numbness and Denies tingling Neuro Denies frequent falls, Denies headache(s), Denies numbness and Denies tingling Psych Denies depression Endo Denies cold intolerance, Denies fatigue and Denies heat intolerance Hansel/Lymph Denies easy bruising Aller/Immun Reports no additional complaints Physical exam (Primary Care) Vital Signs: Last Vital Signs Pulse 54 07/08/23 09:38 BP 128/62 07/08/23 09:38 Pulse Ox 61 L 07/08/23 09:38 Oxygen Delivery Method Room Air 07/08/23 09:38 BMI result Body Mass Index 17.7 Tobacco/Smoking Status: Tobacco use Status Tobacco use date assessed 07/08/23 07/08/23 09:40 Patient Tobacco Use Status Never used Tobacco 07/08/23 09:40 e-Cigarette/Vaping Use Never Used 07/08/23 09:40 PHQ-9: PHQ-9 Score PHQ-9: Total score 12 07/08/23 10:41 Depression Screening Interpretation: Negative Thrive Assessment: Date of Thrive Assessment Date Thrive assessed 07/08/23 07/08/23 09:58 Currently or been in a relationship where the following occur: no concerns reported Advance Care Planning discussion: Exists, not on file Date of discussion: 07/08/23 Who was present: Patient and male project manager interior design Forms completed: None Time spent: 1-15 minutes, not on file (Advised to bring in copy of her healthcare proxy and will) Actual minutes spent: 15 Const Other: Alert oriented x3, no acute distress noted , normal gaity, accompanied by her male friend APARNA Ears: hearing grossly impaired Face and sinus: Yes face symmetric Mouth: Normal oral and palatal mucosa present, oropharynx normal and moist mucous membranes Eyes General: appearance normal, both eyes and all related structures Neck Neck: Yes full ROM, Yes no lymphadenopathy and Yes supple Resp Auscultation: clear to auscultation bilaterally Cardio Other: S1-S2 present regular rate noted GI Palpation (GI): Soft to palpation, nontender and no guarding Auscultation: normal bowel sounds Neuro General: Normal light touch and pain sensation, no focal motor deficits and CN's II-XI intact bilaterally Extrem Other: Cold fingertips bilateral General: Yes full ROM, Yes no joint enlargement, Yes no pedal edema, Yes no calf tenderness and Yes normal gait Psych Appearance: grossly normal and well kempt Mental Status: mental status grossly normal Affect: normal affect Attitude: cooperative Thought process: Normal thought process present Assessment and Plan Assessment & Plan (1) Annual visit for general adult medical examination with abnormal findings: Code(s): Z00.01 - Encounter for general adult medical examination with abnormal findings Plan: Will check appropriate labs. Advised to eat 3 meals a day, continue with ensure once a day. Patient spends most of her time with her male friend who eats meals with her. No longer gets mammogram or colonoscopy screenings. She has had her COVID vaccines and flu vaccine in the past but does not want to get further vaccination, given her Prevnar 20 last year, declines getting shingles vaccine . (2) Osteoporosis: Code(s): M81.0 - Age-related osteoporosis without current pathological fracture Qualifiers: Osteoporosis type: unspecified Presence of current pathological fracture: unspecified Qualified Code(s): M81.0 - Age-related osteoporosis without current pathological fracture Plan: Currently on Prolia, has an appointment for follow-up with Dr. Ash in November 2023 (3) Dyslipidemia: Code(s): E78.5 - Hyperlipidemia, unspecified Plan: Currently on atorvastatin, ordered fasting lipid panel and liver enzymes, (4) Impaired fasting glucose: Code(s): R73.01 - Impaired fasting glucose Plan: Hemoglobin A1c ordered, advised adherence to healthy eating habits (5) CKD (chronic kidney disease): Code(s): N18.9 - Chronic kidney disease, unspecified Qualifiers: Chronic kidney disease stage: unspecified stage Qualified Code(s): N18.9 - Chronic kidney disease, unspecified Plan: Ordered be a basic metabolic panel (6) Hearing impaired: Code(s): H91.90 - Unspecified hearing loss, unspecified ear Plan: Patient declines refer for hearing assessment Orders: Orders Lipid Panel Today E78.5 - Hyperlipidemia, unspecified, M81.0 - Age-related osteoporosis without current pathological fracture, N18.9 - Chronic kidney disease, unspecified, R73.01 - Impaired fasting glucose IRON PROFILE Today E78.5 - Hyperlipidemia, unspecified, M81.0 - Age-related osteoporosis without current pathological fracture, N18.9 - Chronic kidney disease, unspecified, R73.01 - Impaired fasting glucose Basic Metabolic Panel Fasting Today E78.5 - Hyperlipidemia, unspecified, M81.0 - Age-related osteoporosis without current pathological fracture, N18.9 - Chronic kidney disease, unspecified, R73.01 - Impaired fasting glucose Aspartate Amino Transferase Today E78.5 - Hyperlipidemia, unspecified, M81.0 - Age-related osteoporosis without current pathological fracture, N18.9 - Chronic kidney disease, unspecified, R73.01 - Impaired fasting glucose Alanine Aminotransferase Today E78.5 - Hyperlipidemia, unspecified, M81.0 - Age-related osteoporosis without current pathological fracture, N18.9 - Chronic kidney disease, unspecified, R73.01 - Impaired fasting glucose Complete Blood Count Auto Diff Today E78.5 - Hyperlipidemia, unspecified, M81.0 - Age-related osteoporosis without current pathological fracture, N18.9 - Chronic kidney disease, unspecified, R73.01 - Impaired fasting glucose Coding Level of Care Code Est Pt Prev Care >65y(14399) Diagnoses Annual visit for general adult medical examination with abnormal findings Z00.01 Osteoporosis, unspecified osteoporosis type, unspecified pathological fracture presence M81.0 Osteoporosis type: unspecified Presence of current pathological fracture: unspecified Dyslipidemia E78.5 Impaired fasting glucose R73.01 Chronic kidney disease, unspecified CKD stage N18.9 Chronic kidney disease stage: unspecified stage Hearing impaired H91.90 Additional Codes MONCHO-7 Assessment Billing - MONCHO-7 Assessment Tool: MONCHO-7 Assessment 89799 ([id number]) Vital Signs *Quality* - Advance Care Planning discussion: Exists, not on file ([id number]) Vital Signs *Quality* - Time spent: 1-15 minutes, not on file ([id number])
== END 2023-07-08 10:45 | disposition home or self-care (01) ==
PROVIDERS: PCP Internal Medicine; Visit Provider Internal Medicine
DX: Z00.00 Encounter for general adult medical examination without abnormal findings (principal); M81.0 Age-related osteoporosis without current pathological fracture; E78.5 Hyperlipidemia, unspecified; R73.01 Impaired fasting glucose; N18.9 Chronic kidney disease, unspecified
CPT/HCPCS: 1124F; 99397

== ENCOUNTER 2023-08-05 08:46 | Outpatient (REF) | payer OTHER, SELFPAY ==
[2023-08-05 12:46] LABS: MANUAL DIFF FLAG NO
[2023-08-05 12:51] LABS: Basophils Absolute Auto 0.1 X10*3/uL (0.0-0.2); Basophils Percent Auto 0.7 % (0-2); Eosinophils Absolute Auto 0.1 X10*3/uL (0.0-0.4); Eosinophils Percent Auto 1.4 % (0-4); Hematocrit 34.8 % (37.0-47.0); Hemoglobin 10.8 g/dl (12.0-16.0); Imm Gran Abs Auto 0.03 X10*3/uL (0.00-0.03); Imm Gran Pct Auto 0.3 % (0.0-0.4); Lymphocytes Absolute Auto 2.4 X10*3/uL (1.2-4.9); Lymphocytes Percent Auto 27.4 % (20-40); Mean Corpuscular Hemoglobin 30.7 pg (27.0-33.0); Mean Corpuscular Volume 98.9 fL (80.0-98.0); Mean Platelet Volume 10.1 fL (9.4-12.3); Monocytes Absolute Auto 0.9 X10*3/uL (0.1-1.2); Monocytes Percent Auto 9.9 % (2-11); Neutrophils Absolute Auto 5.2 x10*3/uL (2.0-8.3); Neutrophils Percent Auto 60.3 % (45-73); Platelet Count 434 X10*3/uL (160-400); Red Blood Count 3.52 X10*6/uL (4.20-5.50); Red Cell Distribution Width 14.1 % (11.0-16.0); White Blood Count 8.7 X10*3/uL (4.8-10.8)
[2023-08-05 13:17] LABS: Alanine Aminotransferase 9 U/L (0-31); Anion Gap 14 (12-20); Aspartate Amino Transferase 15 U/L (5-31); Blood Urea Nitrogen 24 mg/dL (9-16); Calcium 9.2 mg/dL (8.4-10.2); Carbon Dioxide 23 mmol/L (22-29); Chloride 105 mmol/L (96-108); Cholesterol 172 mg/dL (<200); Estimated Glomerular Filt Rate > 60; Glucose Fasting 107 mg/dL (60-99); HDL Cholesterol 60 mg/dL (>40); Iron 57 mcg/dL (30-160); LDL Cholesterol Calculated 80 mg/dL (<100); Percent Iron Saturation 19 % (15-50); Potassium 4.6 mmol/L (3.3-5.1); Sodium 137 mmol/L (135-145); Total Iron Binding Capacity 298 mcg/dL (228-428); Triglycerides 163 mg/dL (<150); Unsaturated Iron Binding 241 ug/dL
== END 2023-08-05 08:47 | disposition home or self-care (01) ==
LOC: HO.HMGCLDS 08:46
PROVIDERS: PCP Internal Medicine; Visit Provider Internal Medicine
DX: E78.5 Hyperlipidemia, unspecified (principal); R73.01 Impaired fasting glucose; N18.9 Chronic kidney disease, unspecified; M81.0 Age-related osteoporosis without current pathological fracture
CPT/HCPCS: 36415; 80048; 80061; 83540; 84450; 84460; 85025

== ENCOUNTER 2023-10-20 11:50 | Outpatient (AMB) | payer OTHER, SELFPAY ==
[2023-10-20 12:21] VITALS: BP 124/62; PULSE 92; TEMP 36.6; O2SAT 97; BMI 17.8
--- NOTE | 2023-10-20 12:21 | MHC.OFFWIV ---
Intake Vital Signs 10/20/23 12:21 Height 4 ft 10 in Weight 85 lb BMI 17.8 BP 124/62 Blood Pressure Location Lt brachial Position Sitting Pulse 92 Pulse Source Pulse Oximeter Temp 97.9 F Temp Source Temporal Artery Scan Pulse Oximetry (%) 97 Oxygen Delivery Method Room Air Intake Visit Reasons: EP Mouth infection Intake Note: pt is here today for mouth infection started 1 month ago Patient Tobacco Use Status: Never used Tobacco Allergies No Known Allergies Allergy (Verified 10/20/23 12:27) Do you need a note to return to daycare/school/sports/work: No HPI HPI Comments History of Present Illness Details Patient is an 88-year-old female who is here with her complaining ?needing an antibiotic?. They state they just came from the dentist where she had a regular dental cleaning and the dental hygienist told them they need an antibiotic because her infection on her chin is going up into her gums. The patient's tells me that the 2 scabs on her chin have been there for months and that they have only been treating them with a warm cloths a few times a day. He denies they are causing her any pain and she denies any fevers. They tell me they have seen a chemical tester for them but [facility] dermatology told them they do not deal with this kind of issue . [facility] Medical History (Updated 10/20/23 @ 13:08 by Dariela Garsia PA-C) Hearing impaired Memory deficit Dyslipidemia Impaired fasting glucose CKD (chronic kidney disease) Vitamin D deficiency Osteoporosis Surgical History (Updated 07/08/23 @ 13:34 by Kassidy Moreno MD) History of cataract surgery Family History Father No problems noted. Mother No problems noted. Social History Housing: Apartment Alcohol intake: never Patient Tobacco Use Status: Never used Tobacco e-Cigarette/Vaping Use: Never Used Current occupational status: retired Cognitive needs: No Hearing needs: Yes Vision needs: Yes Review of Systems Const All systems reviewed & are unremarkable except as noted in HPI and below Physical Exam Vital Signs: Last Vital Signs Temp 97.9 F 10/20/23 12:21 Pulse 92 10/20/23 12:21 BP 124/62 10/20/23 12:21 Pulse Ox 97 10/20/23 12:21 Oxygen Delivery Method Room Air 10/20/23 12:21 BMI result Body Mass Index 17.8 Const General: cooperative, healthy appearing, comfortable, no acute distress and well developed Limitations: behavioral limitations (impatient) Skin Other: Two 1c, round lesions on inferior chin, both are brown and reddish in color, crusted over and weeping yellow purulence, no surrounding erythema or induration, no warmth noted. Assessment & Plan Assessment & Plan (1) Abscess: Code(s): L02.91 - Cutaneous abscess, unspecified Plan: We will treat with doxycycline, advised to follow-up with primary care doctor if no resolution because she needs to be ruled out for cancerous lesions at this point. Plan see above. Medications: New doxycycline hyclate 100 mg PO BID 14 tabs 0RF Coding Level of Care Code Est Pt Level 3 (12679) Diagnoses Abscess L02.91
== END 2023-10-20 13:07 | disposition home or self-care (01) ==
PROVIDERS: PCP Internal Medicine; Visit Provider Physician Assistant
DX: L02.91 Cutaneous abscess, unspecified (principal)
CPT/HCPCS: 99213

== ENCOUNTER 2023-11-12 10:40 | Outpatient (AMB) | payer OTHER, SELFPAY ==
[2023-11-12 10:44] VITALS: BP 130/70; PULSE 85; O2SAT 99; BMI 16.7
--- NOTE | 2023-11-12 10:44 | MHC.PC.OV ---
Vital Signs 11/12/23 10:44 Height 4 ft 10 in Weight 80 lb BMI 16.7 BP 130/70 Blood Pressure Location Lt brachial Position Sitting Pulse 85 Pulse Source Pulse Oximeter Pulse Oximetry (%) 99 Oxygen Delivery Method Room Air Intake Visit Reasons: follow up per dr Gramajo Intake Note: Pt is here today f/u from walkin after finshing her abx Allergies No Known Allergies Allergy (Verified 11/12/23 11:20) Medication List - Last Reconciled 11/12/23 by Kassidy Moreno MD atorvastatin 10 mg PO DAILY coenzyme Q10 (Ultra CoQ10) 50 mg PO DAILY denosumab (Prolia) 60 mg subcut [id number] ibuprofen (Advil) 200 mg PO Q6H PRN lisinopril 10 mg PO DAILY memantine 5 mg PO BID sertraline 25 mg PO DAILY Tobacco use date assessed: 11/12/23 Fall risk assessment: No Falls in past year Last assessed Fall Risk: 11/12/23 Dental Screening Dental Screen Date: 11/12/23 Did you have a dental visit in the last 12 months?: Yes Did you have a dental problem in the last 6 months where you did not have access to dental care?: Yes Was dental information given to patient?: Patient has dentist HPI follow up per dr Gramajo HPI Details 88-year-old lady here today for follow-up after recent walk-in visit for treatment of an abscess on her chin. Patient was prescribed doxycycline which she has already completed taking. Lesion on chin has resolved. She has hypertension, hyperlipidemia, chronic kidney disease and anemia, and dementia. Has been compliant with taking her medications. Patient lives on her own, but her partner brings her lunch every day, and her neighbor also fixes her supper.. She has been feeling well, no complaints at present time, but partner states that her memory is getting worse. She has osteoporosis, currently on Prolia, has an appointment to see Dr. Ash on 11/18/2023 and has an appointment for her next Prolia shot on 11/20/2023. She was also seen by Neurology, Dr. Machuca, who started patient on memantine 5 mg 1 tablet twice a day and sertraline 25 mg daily, for Alzheimer's disease [facility] Medical History (Updated 11/16/23 @ 22:47 by Kassidy Moreno MD) Alzheimer's dementia Anemia Hearing impaired Memory deficit Dyslipidemia Impaired fasting glucose CKD (chronic kidney disease) Vitamin D deficiency Osteoporosis Surgical History History of cataract surgery Family History Father No problems noted. Mother No problems noted. Social History Housing: Apartment Alcohol intake: never Patient Tobacco Use Status: Never used Tobacco e-Cigarette/Vaping Use: Never Used Current occupational status: retired Cognitive needs: No Hearing needs: Yes Vision needs: Yes Questionnaire Thrive Questionnaire Date Thrive assessed: 07/08/23 MONCHO-7 AMB Questionnaire MONCHO-7 Date MONCHO - 7 assessed: 07/08/23 Source: Developed by Drs. Carlitos Mejia, Oumou Bowen, Brad Austin and colleagues, with an educational otilia from [employer]. Review of Systems Const Reports daytime sleepiness, Denies frequent falls and Denies headache(s) Eyes Denies change in vision ENT Denies change in voice, Denies headache(s) and Denies hoarseness Card Denies chest pain, Denies irregular heart rhythm, Denies leg edema, Denies lightheadedness and Denies dyspnea Resp Denies cough and Denies dyspnea GI Denies abdominal pain and Denies change in bowel habits Reports no additional complaints Musc Denies myalgias, Denies muscle cramps, Denies numbness and Denies tingling Skin/Breast Denies new lesions and Denies rash Neuro Denies frequent falls, Denies headache(s), Denies numbness and Denies tingling Psych Reports no additional complaints Endo Reports no additional complaints Hansel/Lymph Denies easy bruising Aller/Immun Reports no additional complaints Physical exam (Primary Care) Vital Signs: Last Vital Signs Pulse 85 11/12/23 10:44 BP 130/70 11/12/23 10:44 Pulse Ox 99 11/12/23 10:44 Oxygen Delivery Method Room Air 11/12/23 10:44 BMI result Body Mass Index 16.7 Tobacco/Smoking Status: Tobacco use Status Tobacco use date assessed 11/12/23 11/12/23 10:53 Patient Tobacco Use Status Never used Tobacco 11/12/23 10:45 e-Cigarette/Vaping Use Never Used 11/12/23 10:45 Thrive Assessment: Date of Thrive Assessment Date Thrive assessed 07/08/23 11/12/23 10:45 Const Other: Alert oriented x3, no acute distress noted , normal gaity, accompanied by her male friend APARNA Ears: hearing grossly impaired Face and sinus: Yes face symmetric Mouth: Normal oral and palatal mucosa present, oropharynx normal and moist mucous membranes Eyes General: appearance normal, both eyes and all related structures Neck Neck: Yes full ROM, Yes no lymphadenopathy and Yes supple Resp Auscultation: clear to auscultation bilaterally Cardio Other: S1-S2 present regular rate noted GI Palpation (GI): Soft to palpation, nontender and no guarding Auscultation: normal bowel sounds General: Yes no CVA tenderness Back/Spine/Pelvis Back: no CVA tenderness and No back tenderness Skin General skin exam: no rashes or lesions noted Neuro Other: Hearing grossly impaired, able to answer simple question General: Normal light touch and pain sensation, no focal motor deficits and CN's II-XI intact bilaterally Extrem Other: Cold fingertips bilateral General: Yes full ROM, Yes no joint enlargement, Yes no pedal edema, Yes no calf tenderness and Yes normal gait Psych Appearance: grossly normal and well kempt Mental Status: mental status grossly normal Affect: normal affect Attitude: cooperative Thought process: Normal thought process present Assessment and Plan Assessment & Plan (1) CKD (chronic kidney disease): Code(s): N18.9 - Chronic kidney disease, unspecified Qualifiers: Chronic kidney disease stage: unspecified stage Qualified Code(s): N18.9 - Chronic kidney disease, unspecified Plan: Stressed Avoidance of NSAIDs, blood pressure within normal limits. Basic metabolic panel ordered (2) Impaired fasting glucose: Code(s): R73.01 - Impaired fasting glucose Plan: Reinforced importance of following a healthy diet,, advised to stay active. Fasting blood sugar ordered (3) Dyslipidemia: Code(s): E78.5 - Hyperlipidemia, unspecified Plan: Currently on atorvastatin 10 mg daily , taken together with Co Q10 50 mg, fasting lipid panel ordered (4) Anemia: Code(s): D64.9 - Anemia, unspecified Plan: Ordered a repeat CBC and iron profile (5) Osteoporosis: Code(s): M81.0 - Age-related osteoporosis without current pathological fracture Qualifiers: Osteoporosis type: unspecified Presence of current pathological fracture: unspecified Qualified Code(s): M81.0 - Age-related osteoporosis without current pathological fracture Plan: Followed by Dr. Ash, currently on Prolia (6) Vitamin D deficiency: Code(s): E55.9 - Vitamin D deficiency, unspecified Plan: Will check vitamin-D level (7) Alzheimer's dementia: Code(s): G30.9 - Alzheimer's disease, unspecified; F02.80 - Dementia in other diseases classified elsewhere, unspecified severity, without behavioral disturbance, psychotic disturbance, mood disturbance, and anxiety Plan: Seen by Neurology, and was started on memantine and sertraline Orders: Orders Basic Metabolic Panel Fasting 11/12/23 D64.9 - Anemia, unspecified, E78.5 - Hyperlipidemia, unspecified, N18.9 - Chronic kidney disease, unspecified, R73.01 - Impaired fasting glucose Lipid Panel 11/12/23 D64.9 - Anemia, unspecified, E78.5 - Hyperlipidemia, unspecified, N18.9 - Chronic kidney disease, unspecified, R73.01 - Impaired fasting glucose Alanine Aminotransferase 11/12/23 D64.9 - Anemia, unspecified, E78.5 - Hyperlipidemia, unspecified, N18.9 - Chronic kidney disease, unspecified, R73.01 - Impaired fasting glucose Aspartate Amino Transferase 11/12/23 D64.9 - Anemia, unspecified, E78.5 - Hyperlipidemia, unspecified, N18.9 - Chronic kidney disease, unspecified, R73.01 - Impaired fasting glucose Complete Blood Count Auto Diff 11/12/23 D64.9 - Anemia, unspecified, E78.5 - Hyperlipidemia, unspecified, N18.9 - Chronic kidney disease, unspecified, R73.01 - Impaired fasting glucose IRON PROFILE 11/12/23 D64.9 - Anemia, unspecified, E78.5 - Hyperlipidemia, unspecified, N18.9 - Chronic kidney disease, unspecified, R73.01 - Impaired fasting glucose Vitamin D 25-OH Total 11/12/23 E55.9 - Vitamin D deficiency, unspecified, M81.0 - Age-related osteoporosis without current pathological fracture Coding Level of Care Code Est Pt Level 4 (08580) Complex EM visit Add On G2211 Diagnoses Chronic kidney disease, unspecified CKD stage N18.9 Chronic kidney disease stage: unspecified stage Impaired fasting glucose R73.01 Dyslipidemia E78.5 Anemia D64.9 Osteoporosis, unspecified osteoporosis type, unspecified pathological fracture presence M81.0 Osteoporosis type: unspecified Presence of current pathological fracture: unspecified Vitamin D deficiency E55.9 Alzheimer's dementia G30.9; F02.80
== END 2023-11-12 17:14 | disposition home or self-care (01) ==
LOC: HO.HMGC 10:40
PROVIDERS: PCP Internal Medicine; Visit Provider Internal Medicine
DX: N18.9 Chronic kidney disease, unspecified (principal); G30.9 Alzheimer's disease, unspecified; F02.80 Dementia in other diseases classified elsewhere, unspecified severity, without behavioral disturbance, psychotic disturbance, mood disturbance, and anxiety; R73.01 Impaired fasting glucose; E78.5 Hyperlipidemia, unspecified; D64.9 Anemia, unspecified; M81.0 Age-related osteoporosis without current pathological fracture; E55.9 Vitamin D deficiency, unspecified
CPT/HCPCS: 99214; G2211

== ENCOUNTER 2023-11-19 09:07 | Outpatient (REF) | payer OTHER, SELFPAY ==
[2023-11-19 10:19] LABS: MANUAL DIFF FLAG NO
[2023-11-19 10:32] LABS: Basophils Absolute Auto 0.1 X10*3/uL (0.0-0.2); Basophils Percent Auto 0.9 % (0-2); Eosinophils Absolute Auto 0.2 X10*3/uL (0.0-0.4); Eosinophils Percent Auto 2.9 % (0-4); Hematocrit 36.9 % (37.0-47.0); Hemoglobin 11.6 g/dl (12.0-16.0); Imm Gran Abs Auto 0.02 X10*3/uL (0.00-0.03); Imm Gran Pct Auto 0.3 % (0.0-0.4); Lymphocytes Absolute Auto 2.4 X10*3/uL (1.2-4.9); Lymphocytes Percent Auto 34.4 % (20-40); Mean Corpuscular HGB Conc 31.4 g/dl (31.0-35.0); Mean Corpuscular Hemoglobin 29.9 pg (27.0-33.0); Mean Corpuscular Volume 95.1 fL (80.0-98.0); Mean Platelet Volume 10.9 fL (9.4-12.3); Monocytes Absolute Auto 0.5 X10*3/uL (0.1-1.2); Monocytes Percent Auto 7.4 % (2-11); Neutrophils Absolute Auto 3.8 x10*3/uL (2.0-8.3); Neutrophils Percent Auto 54.1 % (45-73); Platelet Count 314 X10*3/uL (160-400); Red Blood Count 3.88 X10*6/uL (4.20-5.50); Red Cell Distribution Width 13.1 % (11.0-16.0)
[2023-11-19 10:43] LABS: Alanine Aminotransferase 16 U/L (0-31); Albumin Level 4.3 g/dL (3.5-5.0); Anion Gap 14 (12-20); Aspartate Amino Transferase 22 U/L (5-31); Blood Urea Nitrogen 24 mg/dL (9-16); Calcium 9.4 mg/dL (8.4-10.2); Carbon Dioxide 23 mmol/L (22-29); Chloride 108 mmol/L (96-108); Cholesterol 210 mg/dL (<200); Estimated Glomerular Filt Rate > 60; Glucose Fasting 108 mg/dL (60-99); Glucose Random 108 mg/dL (60-115); HDL Cholesterol 79 mg/dL (>40); Iron 77 mcg/dL (30-160); LDL Cholesterol Calculated 113 mg/dL (<100); Percent Iron Saturation 23 % (15-50); Sodium 141 mmol/L (135-145); Total Iron Binding Capacity 331 mcg/dL (228-428); Triglycerides 91 mg/dL (<150); Unsaturated Iron Binding 254 ug/dL
[2023-11-19 11:06] LABS: Vitamin D 25-OH Total 68.6 ng/mL (>30)
== END 2023-11-19 09:08 | disposition home or self-care (01) ==
LOC: HO.HMGCLDS 09:07
PROVIDERS: PCP Internal Medicine; Referring Provider Internal Medicine Endocrinology, Diabetes & Metabolism; Visit Provider Internal Medicine
DX: D64.9 Anemia, unspecified (principal); E55.9 Vitamin D deficiency, unspecified; N18.9 Chronic kidney disease, unspecified; R73.01 Impaired fasting glucose; E78.5 Hyperlipidemia, unspecified; M81.0 Age-related osteoporosis without current pathological fracture
CPT/HCPCS: 36415; 80048; 80061; 82040; 82306; 83540; 84450; 84460; 85025

== ENCOUNTER 2023-11-20 14:15 | Outpatient (AMB) | payer OTHER, SELFPAY ==
[2023-11-20 14:25] VITALS: BP 130/64; PULSE 64; BMI 16.9
--- NOTE | 2023-11-20 14:25 | MHC.OFFVIS ---
Vital Signs 11/20/23 14:25 Height 4 ft 10 in Weight 80 lb 14.554 oz BMI 16.9 BP 130/64 Blood Pressure Location Lt brachial Position Sitting Pulse 64 Pulse Source Pulse Oximeter Intake Visit Reasons: Osteoporosis-confirmed Intake Note: Patient present today for Osteoporosis follow up visit. Human Resources Psychologist Required: No Accompanied by: Friend Allergies No Known Allergies Allergy (Verified 11/20/23 14:29) HPI Comments Details: 88 YO Female with PMHx Osteoporosis is seen in F/U for Osteoporosis. The patient last saw Dr. Ruff on 11/11/2022 First diagnosed in 2004 with her first screening DEXA scan. Received treatment in the past with Fosamax, beginning in 2009 for 3 years, and then this was stopped. She reports that it was started again in April of 2018 after her most recent BMD revealed severe Osteoporosis of the spine, with Osteoporosis of the hip, and a significant decline in BMD in all areas. Tolerated treatment well without complication, but then stopped it again after 3-4 months of therapy. She began Tymlos 02/04/2019 and completed therapy 10/2020. She then transitioned to Prolia 10/31/2020. She has received 4 doses so far. After her initial consultation with me she had a full workup for secondary causes of Osteoporosis. This did reveal low urine calcium, but this was an inadequate collection. She also was found to have high normal serum Calcium, but this has remained WNL. No history of pathologic fracture or ONJ. Has 3 servings of dietary calcium per day in the form of an 8 oz glass of milk, a 4 oz yogurt, and 1 oz of cheese. Takes Calcium Carbonate 600 mg PO daily. Takes 1000 IU of Vitamin D daily. Denies ever using PPI, anticoagulant, antiepileptic or glucocorticoid medication. Does weight bearing exercise 5-7 days per week in the form of walking, and also does an exercise class at the [employer] center. Fracture history: Denies. Height loss: Denies. 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 Menses was always regular. , did not breastfeed. Menopause was age 39. Never used HRT. History of Kidney stones: Denies. Family history of Osteoporosis or hip fracture. Has full dentures. Does see the dentist twice a year. DXA: 05/21/2022 FINDINGS: AP SPINE L1-L2 (excluding L3 and L4): The data of L1-L4 has been changed to exclude the L3 and L4 vertebral bodies, because degenerative changes at these levels may cause overestimation of lumbar spine density. Current: BMD 0.941 g/cm2, Z-score 0.9, T-score -1.9, osteopenia, 12.0% increase from previous, 22.8% increase from baseline (<5% change is not significant). Prior: BMD 0.840 g/cm2. Baseline: BMD 0.766 g/cm2. LEFT FEMUR, NECK: Current: BMD 0.716 g/cm2, Z-score 0.6, T-score -2.3, osteopenia. Prior: BMD 0.634 g/cm2. Baseline: BMD 0.734 g/cm2. LEFT FEMUR, TOTAL: Current: BMD 0.635 g/cm2, Z-score -0.1, T-score -3.0, osteoporosis, 0.8% increase from previous, 17.5% decrease from baseline (<5% change is not significant). Prior: BMD 0.630 g/cm2. Baseline: BMD 0.770 g/cm2. LEFT FOREARM RADIUS 33%: BMD 0.440 g/cm2, Z-score -1.8, T-score -5.0, osteoporosis. Prior:? Not previously measured. Labs: Laboratory Tests 05/09/21 05/09/21 11/08/21 09:28 09:28 09:32 Creatinine Estimated GFR 34 Albumin N-Telopeptide X-linked 18 25-OH Vitamin D Total PTH Intact 24 Calcium (PTH Intact) 10.4 05/11/22 08:48 Creatinine 1.25 :Estimated GFR 41 Albumin 4.6 N-Telopeptide X-linked 25-OH Vitamin D Total 87.5 PTH Intact Calcium (PTH Intact) No fx since last visit. No back or hip pain [facility] Medical History (Updated 11/16/23 @ 22:47 by Kassidy Moreno MD) Alzheimer's dementia Anemia Hearing impaired Memory deficit Dyslipidemia Impaired fasting glucose CKD (chronic kidney disease) Vitamin D deficiency Osteoporosis Surgical History History of cataract surgery Family History Father No problems noted. Mother No problems noted. Social History Housing: Apartment Alcohol intake: never Patient Tobacco Use Status: Never used Tobacco e-Cigarette/Vaping Use: Never Used Current occupational status: retired Cognitive needs: No Hearing needs: Yes Vision needs: Yes Assessment & Plan Assessment & Plan (1) Osteoporosis: Code(s): M81.0 - Age-related osteoporosis without current pathological fracture Category: Medical Qualifiers: Osteoporosis type: unspecified Presence of current pathological fracture: unspecified Qualified Code(s): M81.0 - Age-related osteoporosis without current pathological fracture Plan: This 88-year-old female with a history of osteoporosis treated initially with bisphosphonate and then anabolic therapy followed by Prolia for the past 3 years. Secondary workup was previously negative. Nofx Plan is to continue the Prolia. Patient receive a dose today Coding Level of Care Code Est Pt Level 3 (37616) Diagnoses Osteoporosis, unspecified osteoporosis type, unspecified pathological fracture presence M81.0 Osteoporosis type: unspecified Presence of current pathological fracture: unspecified
== END 2023-11-20 14:47 | disposition home or self-care (01) ==
PROVIDERS: PCP Internal Medicine; Visit Provider Internal Medicine Endocrinology, Diabetes & Metabolism
DX: M81.0 Age-related osteoporosis without current pathological fracture (principal)
CPT/HCPCS: 99213

== ENCOUNTER 2023-11-20 14:15 | Outpatient (AMB) | payer OTHER, SELFPAY ==
--- NOTE | 2023-11-20 14:59 | AM.OFFVISNUR ---
Intake Visit Reasons: Prolia Allergies No Known Allergies Allergy (Verified 11/20/23 14:29) Office Meds Prolia 60 mg/mL subcutaneous syringe Performing Provider: Carlitos Ash MD [place] [facility] Administered by: Carleen Tomas LPN on 11/20/23 14:59 Dose Route Admin Location Dispensed Lot Number Expiration Date NDC Snowboarder 60 mg subcut Left upper arm 1 mL [id number] 04/03/26 [facility] Assessment & Plan Assessment & Plan Orders: Orders AMB Denosumab Injection Patient Supplied Today M81.0 - Age-related osteoporosis without current pathological fracture Medications: New Prolia (denosumab) 60 mg subcut ONCE 1 mL 0RF NS M81.0 - Age-related osteoporosis without current pathological fracture
== END 2023-11-20 14:57 | disposition home or self-care (01) ==
PROVIDERS: PCP Internal Medicine; Visit Provider Internal Medicine Endocrinology, Diabetes & Metabolism
DX: M81.0 Age-related osteoporosis without current pathological fracture (principal)

== ENCOUNTER → 2023-11-20 14:15 | Outpatient (BNVA) | payer OTHER, SELFPAY | PROVIDERS: PCP Internal Medicine; Visit Provider Internal Medicine Endocrinology, Diabetes & Metabolism | DX: M81.0 Age-related osteoporosis without current pathological fracture (principal) | CPT/HCPCS: 96372; 99212; J0897 ==

== ENCOUNTER 2024-01-20 12:23 | Outpatient (AMB) | payer OTHER, SELFPAY ==
[2024-01-20 13:04] VITALS: BP 140/80; PULSE 99; O2SAT 92; BMI 16.5
--- NOTE | 2024-01-20 13:04 | A.OFFPC_ITS ---
Vital Signs 01/20/24 13:04 Height 4 ft 10 in Weight 79 lb BMI 16.5 BP 140/80 H Blood Pressure Location Lt brachial Position Sitting Pulse 99 Pulse Source Pulse Oximeter Pulse Oximetry (%) 92 Oxygen Delivery Method Room Air Intake Visit Reasons: gen body pain and increase dementia symptoms Intake Note: Pt is here today c/o Rt hip pain no injury noted and increased dementia sx's Allergies No Known Allergies Allergy (Verified 01/25/24 23:29) Medication List - Last Reconciled 01/25/24 by Kassidy Moreno MD atorvastatin 10 mg PO DAILY coenzyme Q10 (Ultra CoQ10) 50 mg PO DAILY denosumab (Prolia) 60 mg subcut [id number] ibuprofen (Advil) 200 mg PO Q6H PRN lisinopril 10 mg PO DAILY memantine 5 mg PO BID sertraline 25 mg PO DAILY tramadol 50 mg PO DAILY PRN Tobacco use date assessed: 01/20/24 Fall risk assessment: No Falls in past year Last assessed Fall Risk: 01/20/24 Dental Screening Dental Screen Date: 01/20/24 Did you have a dental visit in the last 12 months?: Yes Did you have a dental problem in the last 6 months where you did not have access to dental care?: No Was dental information given to patient?: Patient has dentist HPI gen body pain and increase dementia symptoms HPI Details 89-year-old lady with past medical histo ry of hypertension, hyperlipidemia, chronic kidney disease and anemia, and dementia. She was also seen by Neurology, Dr. Machuca, who started patient on memantine 5 mg 1 tablet twice a day and sertraline 25 mg daily, for Alzheimer's diseaseHas been compliant with taking her medications. She also has been seen by Dr. Ash for treatment of her osteoporosis, currently on Prolia. Patient lives on her own, but her partner brings her lunch every day, and her neighbor also fixes her supper.. At present she is complaining of pain in her joints mainly in her hips and knees, and has been taking ibuprofen, which has not been helping. No history of falls. Patient's son also is here on this visit accompanying patient's c 13 catapult operator and they are very concerned about her progressive decline in memory and ability to take care of herself. Would like help in getting assistance for her to get a CHAIR POST MACHINE OPERATOR to assist with her ADLs. [facility] Medical History (Updated 01/20/24 @ 13:33 by Kassidy Moreno MD) Pain in hip joint Alzheimer's dementia Anemia Hearing impaired Memory deficit Dyslipidemia Impaired fasting glucose CKD (chronic kidney disease) Vitamin D deficiency Osteoporosis Surgical History History of cataract surgery Family History Father No problems noted. Mother No problems noted. Social History Housing: Apartment Alcohol intake: never Patient Tobacco Use Status: Never used Tobacco e-Cigarette/Vaping Use: Never Used Current occupational status: retired Cognitive needs: No Hearing needs: Yes Vision needs: Yes Questionnaire Thrive Questionnaire Date Thrive assessed: 07/08/23 MONCHO-7 AMB Questionnaire MONCHO-7 Date MONCHO - 7 assessed: 07/08/23 Source: Developed by Drs. Carlitos Mejia, Oumou Bowen, Brad Austin and colleagues, with an educational otilia from [employer]. Review of Systems Const All systems reviewed & are unremarkable except as noted in HPI and below Neuro Reports confusion Psych Reports confusion Physical exam (Primary Care) Vital Signs: Last Vital Signs Pulse 99 01/20/24 13:04 BP 140/80 H 01/20/24 13:04 Pulse Ox 92 01/20/24 13:04 Oxygen Delivery Method Room Air 01/20/24 13:04 BMI result Body Mass Index 16.5 Tobacco/Smoking Status: Tobacco use Status Tobacco use date assessed 01/20/24 01/20/24 13:11 Patient Tobacco Use Status Never used Tobacco 01/20/24 13:06 e-Cigarette/Vaping Use Never Used 01/20/24 13:06 Thrive Assessment: Date of Thrive Assessment Date Thrive assessed 07/08/23 01/20/24 13:06 Const Other: Patient accompanied by son and her friend, needs assistance with ambulation, in mild pain distress General: confusion Nutritional Appearance: underweight Orientation/consciousness: oriented to person and confusion HENMT Ears: hearing grossly impaired Face and sinus: Yes face symmetric Mouth: Normal oral and palatal mucosa present, oropharynx normal and moist mucous membranes Neck Neck: Yes full ROM, Yes no lymphadenopathy and Yes supple Resp Auscultation: clear to auscultation bilaterally Cardio Other: S1-S2 present regular rate noted GI Palpation (GI): Soft to palpation, nontender and no guarding Auscultation: normal bowel sounds General: Yes no CVA tenderness Back/Spine/Pelvis Back: no CVA tenderness and No back tenderness Neuro Other: Hearing grossly impaired, able to answer simple question General: oriented to person, Normal light touch and pain sensation, no focal motor deficits, CN's II-XI intact bilaterally and confusion Gait exam (Neuro): Antalgic gait present Extrem Other: Cold fingertips bilateral, tenderness on palpation over both hips and knees, no joint swelling erythema noted General: Yes no joint enlargement, Yes no pedal edema and Yes no calf tenderness Assessment and Plan Assessment & Plan (1) Pain in hip joint: Code(s): M25.559 - Pain in unspecified hip Plan: X-ray of bilateral hip/pelvis ordered. Prescription sent for tramadol 50 mg per tablet, to take 1 tablet together with Tylenol 500 mg no more than twice a day as needed for severe pain. (2) Alzheimer's dementia: Code(s): G30.9 - Alzheimer's disease, unspecified; F02.80 - Dementia in other diseases classified elsewhere, unspecified severity, without behavioral disturbance, psychotic disturbance, mood disturbance, and anxiety Plan: Seen by Neurology and started on memantine and also sertraline. Patient's son and c 13 catapult operator was advised that they need to contact [facility] and ask for CHAIR POST MACHINE OPERATOR assistance, and if they are not able to assist to reach out to [facility]. Verbalizes understanding and agrees to plan of care. Medications: New tramadol 50 mg PO DAILY PRN 10 tabs 0RF pain, moderate Coding Level of Care Code Est Pt Level 4 (29171) Complex EM visit Add On G2211 Diagnoses Pain in hip joint M25.559 Alzheimer's dementia G30.9; F02.80
== END 2024-01-20 15:00 | disposition home or self-care (01) ==
PROVIDERS: PCP Internal Medicine; Visit Provider Internal Medicine
DX: M25.559 Pain in unspecified hip (principal); G30.9 Alzheimer's disease, unspecified; F02.80 Dementia in other diseases classified elsewhere, unspecified severity, without behavioral disturbance, psychotic disturbance, mood disturbance, and anxiety

== ENCOUNTER → 2024-01-20 12:23 | Outpatient (BNVA) | payer OTHER, SELFPAY | PROVIDERS: PCP Internal Medicine; Visit Provider Internal Medicine ==

== ENCOUNTER 2024-01-20 13:35 | Outpatient (REF) | payer OTHER, SELFPAY ==
--- NOTE | ~2024-01-20 | XR_ITS ---
EXAMINATION: XR HIP, LEFT Pelvis: CLINICAL INFORMATION: Pain left hip COMPARISON: None available. TECHNIQUE: Two views of the left hip. Single view pelvis FINDINGS: Left hip: The joint space and surrounding bone and soft tissues are normal. Pelvis: Bony joints in the pelvis normal. Incidental note made of multilevel spondylosis the partially visualized lumbosacral spine with severe degenerative disc changes noted at the L4-L5 level. XR/XR hip LT w PEL1V IMPRESSION: LEFT HIP: Normal. PELVIS: 1. Normal. 2. 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 Electronically signed by: Shorty Li MD 01/26/2024 03:01 PM EDT
== END 2024-01-20 13:36 | disposition home or self-care (01) ==
LOC: HO.HMGCX 13:35
PROVIDERS: PCP Internal Medicine; Visit Provider Internal Medicine
DX: M25.552 Pain in left hip (principal); G30.9 Alzheimer's disease, unspecified; F02.80 Dementia in other diseases classified elsewhere, unspecified severity, without behavioral disturbance, psychotic disturbance, mood disturbance, and anxiety
CPT/HCPCS: 73502; 99212

== ENCOUNTER 2024-05-18 08:14 | Outpatient (REF) | payer OTHER, SELFPAY ==
[2024-05-18 10:31] LABS: Anion Gap 10 (12-20); Blood Urea Nitrogen 24 mg/dL (9-16); Calcium 8.8 mg/dL (8.4-10.2); Carbon Dioxide 25 mmol/L (22-29); Chloride 109 mmol/L (96-108); Estimated Glomerular Filt Rate > 60; Glucose Random 93 mg/dL (60-115); Potassium 3.9 mmol/L (3.3-5.1); Sodium 140 mmol/L (135-145)
== END 2024-05-18 08:15 | disposition home or self-care (01) ==
LOC: HO.HMGCLDS 08:14
PROVIDERS: PCP Internal Medicine; Visit Provider Internal Medicine Endocrinology, Diabetes & Metabolism
DX: M81.0 Age-related osteoporosis without current pathological fracture (principal)
CPT/HCPCS: 36415; 80048

== ENCOUNTER 2024-05-20 10:05 | Outpatient (AMB) | payer OTHER, SELFPAY ==
--- NOTE | 2024-05-20 10:14 | A.OFFVIS_ITS ---
Vital Signs 05/20/24 10:17 Height 4 ft 10.55 in Weight 87 lb 15.431 oz BMI 18.0 BP 130/70 Blood Pressure Location Rt brachial Position Sitting Pulse 97 Pulse Source Pulse Oximeter Intake Visit Reasons: Osteoporosis/prolia Intake Note: Patient present today for Osteoporosis follow up visit. 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 First diagnosed in 2004 with her first screening DEXA scan. Received treatment in the past with Fosamax, beginning in 2009 for 3 years, and then this was stopped. She reports that it was started again in April of 2018 after her most recent BMD revealed severe Osteoporosis of the spine, with Osteoporosis of the hip, and a significant decline in BMD in all areas. Tolerated treatment well without complication, but then stopped it again after 3-4 months of therapy. She began Tymlos 02/04/2019 and completed therapy 10/2020. She then transitioned to Prolia 10/31/2020. She has received 4 doses so far. After her initial consultation with me she had a full workup for secondary causes of Osteoporosis. This did reveal low urine calcium, but this was an inadequate collection. She also was found to have high normal serum Calcium, but this has remained WNL. No history of pathologic fracture or ONJ. Has 3 servings of dietary calcium per day in the form of an 8 oz glass of milk, a 4 oz yogurt, and 1 oz of cheese. Takes Calcium Carbonate 600 mg PO daily. Takes 1000 IU of Vitamin D daily. Denies ever using PPI, anticoagulant, antiepileptic or glucocorticoid medication. Does weight bearing exercise 5-7 days per week in the form of walking, and also does an exercise class at the [employer] [facility]. Fracture history: Denies. Height loss: Denies. 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 Menses was always regular. , did not breastfeed. Menopause was age 39. Never used HRT. History of Kidney stones: Denies. Family history of Osteoporosis or hip fracture. Has full dentures. Does see the dentist twice a year. DXA: 05/21/2022 FINDINGS: AP SPINE L1-L2 (excluding L3 and L4): The data of L1-L4 has been changed to exclude the L3 and L4 vertebral bodies, because degenerative changes at these levels may cause overestimation of lumbar spine density. Current: BMD 0.941 g/cm2, Z-score 0.9, T-score -1.9, osteopenia, 12.0% increase from previous, 22.8% increase from baseline (<5% change is not significant). Prior: BMD 0.840 g/cm2. Baseline: BMD 0.766 g/cm2. LEFT FEMUR, NECK: Current: BMD 0.716 g/cm2, Z-score 0.6, T-score -2.3, osteopenia. Prior: BMD 0.634 g/cm2. Baseline: BMD 0.734 g/cm2. LEFT FEMUR, TOTAL: Current: BMD 0.635 g/cm2, Z-score -0.1, T-score -3.0, osteoporosis, 0.8% increase from previous, 17.5% decrease from baseline (<5% change is not significant). Prior: BMD 0.630 g/cm2. Baseline: BMD 0.770 g/cm2. LEFT FOREARM RADIUS 33%: BMD 0.440 g/cm2, Z-score -1.8, T-score -5.0, osteoporosis. Prior:? Not previously measured. Labs: Laboratory Tests 05/09/21 05/09/21 11/08/21 09:28 09:28 09:32 Creatinine Estimated GFR 34 Albumin N-Telopeptide X-linked 18 25-OH Vitamin D Total PTH Intact 24 Calcium (PTH Intact) 10.4 05/11/22 08:48 Creatinine 1.25 :Estimated GFR 41 Albumin 4.6 N-Telopeptide X-linked 25-OH Vitamin D Total 87.5 PTH Intact Calcium (PTH Intact) No fx since last visit. No back or hip pain . Currently receiving Prolia 60 mg q.6 months for 4 years [facility] Medical History (Updated 01/20/24 @ 13:33 by Kassidy Moreno MD) Pain in hip joint Alzheimer's dementia Anemia Hearing impaired Memory deficit Dyslipidemia Impaired fasting glucose CKD (chronic kidney disease) Vitamin D deficiency Osteoporosis Surgical History History of cataract surgery Family History Father No problems noted. Mother No problems noted. Social History Housing: Apartment Alcohol intake: never Patient Tobacco Use Status: Never used Tobacco e-Cigarette/Vaping Use: Never Used Current occupational status: retired Cognitive needs: No Hearing needs: Yes Vision needs: Yes Physical Exam Vital Signs: BMI result Body Mass Index 18.0 Assessment & Plan Assessment & Plan (1) Osteoporosis: Code(s): M81.0 - Age-related osteoporosis without current pathological fracture Category: Medical Qualifiers: Osteoporosis type: unspecified Presence of current pathological fracture: unspecified Qualified Code(s): M81.0 - Age-related osteoporosis without current pathological fracture Plan: This 88-year-old female with a history of osteoporosis treated initially with bisphosphonate and then anabolic therapy followed by Prolia for the past 3 years. Secondary workup was previously negative. Nofx Plan is to continue the Prolia. Patient receive a dose today. We will recheck DEXA bone density of hip and spine and if bone density and is improving into osteopenic range may transition back to bisphosphonate Orders: Orders XR DEXA axial skeleton Today M81.0 - Age-related osteoporosis without current pathological fracture Coding Level of Care Code Est Pt Level 3 (14751) Diagnoses Osteoporosis, unspecified osteoporosis type, unspecified pathological fracture presence M81.0 Osteoporosis type: unspecified Presence of current pathological fracture: unspecified
[2024-05-20 10:17] VITALS: BP 130/70; PULSE 97; BMI 18.0
== END 2024-05-20 10:56 | disposition home or self-care (01) ==
PROVIDERS: PCP Internal Medicine; Visit Provider Internal Medicine Endocrinology, Diabetes & Metabolism
DX: M81.0 Age-related osteoporosis without current pathological fracture (principal)
CPT/HCPCS: 99213

== ENCOUNTER → 2024-05-20 10:05 | Outpatient (BNVA) | payer OTHER, SELFPAY | PROVIDERS: PCP Internal Medicine; Visit Provider Internal Medicine Endocrinology, Diabetes & Metabolism | DX: M81.0 Age-related osteoporosis without current pathological fracture (principal); Z51.81 Encounter for therapeutic drug level monitoring; Z79.899 Other long term (current) drug therapy | CPT/HCPCS: 96372; 99212; J0897 ==

== ENCOUNTER 2024-06-01 11:01 | Outpatient (AMB) | payer OTHER, SELFPAY ==
[2024-06-01 12:06] VITALS: BP 128/68; PULSE 87; RESP 14; TEMP 36.7; O2SAT 96; BMI 17.9
--- NOTE | 2024-06-01 12:06 | MHC.PC.OV ---
Vital Signs 06/01/24 12:06 Height 4 ft 10.5 in Weight 87 lb BMI 17.9 BP 128/68 Blood Pressure Location Lt brachial Position Sitting Respiration 14 Pulse 87 Temp 98.0 F Temp Source Oral Pulse Oximetry (%) 96 Oxygen Delivery Method Room Air Intake Visit Reasons: Med Review Intake Note: Pt is here today for a med review Allergies No Known Allergies Allergy (Verified 06/01/24 12:20) Medication List - Last Reconciled 06/01/24 by Kassidy Moreno MD atorvastatin 10 mg PO DAILY coenzyme Q10 (Ultra CoQ10) 50 mg PO DAILY denosumab (Prolia) 60 mg subcut [id number] ibuprofen (Advil) 200 mg PO Q6H PRN lisinopril 10 mg PO DAILY memantine 5 mg PO BID sertraline 25 mg PO DAILY Tobacco use date assessed: 06/01/24 Fall risk assessment: No Falls in past year Last assessed Fall Risk: 06/01/24 Dental Screening Dental Screen Date: 06/01/24 Did you have a dental visit in the last 12 months?: No Did you have a dental problem in the last 6 months where you did not have access to dental care?: No Was dental information given to patient?: No HPI Med Review HPI Details 89-year-old lady with past medical history of hypertension, hyperlipidemia, chronic kidney disease , anemia, and dementia, here today for follow-up.. She was started by her neurologist, Dr. Machuca on memantine 5 mg 1 tablet twice a day and sertraline 25 mg daily for her dementia. Patient's son states that mother's condition however is progressing . She is currently on Prolia for treatment of her osteoporosis, followed by Dr. Ash. She now lives with her son Currently takes atorvastatin 10 mg once a day together with Co Q10 for her hyperlipidemia, and is on lisinopril 10 mg daily for hypertension control. Blood pressure is within normal limits. As per son, patient has been complaining of intermittent joint pains, none at present time. Also states that his mother's dementia is progressively getting worse and needs full-time care and supervision [facility] Medical History (Updated 06/01/24 @ 12:30 by Kassidy Moreno MD) Pain in hip joint Alzheimer's dementia Anemia Hearing impaired Memory deficit Dyslipidemia Impaired fasting glucose CKD (chronic kidney disease) Vitamin D deficiency Osteoporosis Surgical History History of cataract surgery Family History Father No problems noted. Mother No problems noted. Social History Housing: Apartment Alcohol intake: never Patient Tobacco Use Status: Never used Tobacco e-Cigarette/Vaping Use: Never Used Current occupational status: retired Cognitive needs: No Hearing needs: Yes Vision needs: Yes Questionnaire Thrive Questionnaire Date Thrive assessed: 07/08/23 MONCHO-7 AMB Questionnaire MONCHO-7 Date MONCHO - 7 assessed: 07/08/23 Source: Developed by Drs. Carlitos Mejia, Oumou Bowen, Brad Austin and colleagues, with an educational otilia from [employer]. Review of Systems Const All systems reviewed & are unremarkable except as noted in HPI and below Card Reports no additional complaints Resp Reports no additional complaints GI Denies abdominal pain and Denies change in bowel habits Reports urinary incontinence Musc Reports no additional complaints Neuro Reports confusion Psych Reports confusion Physical exam (Primary Care) Vital Signs: Last Vital Signs Temp 98.0 F 06/01/24 12:06 Pulse 87 06/01/24 12:06 Resp 14 06/01/24 12:06 BP 128/68 06/01/24 12:06 Pulse Ox 96 06/01/24 12:06 Oxygen Delivery Method Room Air 06/01/24 12:06 BMI result Body Mass Index 17.9 Tobacco/Smoking Status: Tobacco use Status Tobacco use date assessed 06/01/24 06/01/24 12:09 Patient Tobacco Use Status Never used Tobacco 06/01/24 12:09 e-Cigarette/Vaping Use Never Used 06/01/24 12:09 Thrive Assessment: Date of Thrive Assessment Date Thrive assessed 07/08/23 06/01/24 12:09 Const Other: Patient very agitated to during visit, insisting on going home General: confusion Nutritional Appearance: underweight Orientation/consciousness: confusion HENMT Other: Hard of hearing Eyes General: appearance normal, both eyes and all related structures Resp Auscultation: clear to auscultation bilaterally Cardio Other: S1-S2 present regular rate and rhythm Neuro General: confusion Extrem General: Yes no joint enlargement, Yes no pedal edema and Yes normal gait Coding Level of Care Code Est Pt Level 4 (32418) Complex EM visit Add On G2211 Diagnoses Osteoporosis, unspecified osteoporosis type, unspecified pathological fracture presence M81.0 Osteoporosis type: unspecified Presence of current pathological fracture: unspecified Vitamin D deficiency E55.9 Dyslipidemia E78.5 Hearing impaired H91.90 Alzheimer's dementia G30.9; F02.80 Assessment & Plan Assessment & Plan (1) Osteoporosis: Code(s): M81.0 - Age-related osteoporosis without current pathological fracture Category: Medical Qualifiers: Osteoporosis type: unspecified Presence of current pathological fracture: unspecified Qualified Code(s): M81.0 - Age-related osteoporosis without current pathological fracture Plan: Followed by Dr. Ash currently on Prolia (2) Vitamin D deficiency: Code(s): E55.9 - Vitamin D deficiency, unspecified Category: Medical Plan: Will check vitamin-D level (3) Dyslipidemia: Code(s): E78.5 - Hyperlipidemia, unspecified Category: Medical Plan: Currently on atorvastatin, ordered fasting lipid panel and liver enzymes (4) Hearing impaired: Code(s): H91.90 - Unspecified hearing loss, unspecified ear Category: Medical Plan: Patient refusing to wear hearing aid , per son (5) Alzheimer's dementia: Code(s): G30.9 - Alzheimer's disease, unspecified; F02.80 - Dementia in other diseases classified elsewhere, unspecified severity, without behavioral disturbance, psychotic disturbance, mood disturbance, and anxiety Category: Medical Plan: Currently on memantine and sertraline, followed by Neurology Orders: Orders Lipid Panel 06/01/24 E55.9 - Vitamin D deficiency, unspecified, E78.5 - Hyperlipidemia, unspecified, H91.90 - Unspecified hearing loss, unspecified ear, M81.0 - Age-related osteoporosis without current pathological fracture, R73.01 - Impaired fasting glucose Alanine Aminotransferase 06/01/24 E55.9 - Vitamin D deficiency, unspecified, E78.5 - Hyperlipidemia, unspecified, H91.90 - Unspecified hearing loss, unspecified ear, M81.0 - Age-related osteoporosis without current pathological fracture, R73.01 - Impaired fasting glucose Aspartate Amino Transferase 06/01/24 E55.9 - Vitamin D deficiency, unspecified, E78.5 - Hyperlipidemia, unspecified, H91.90 - Unspecified hearing loss, unspecified ear, M81.0 - Age-related osteoporosis without current pathological fracture, R73.01 - Impaired fasting glucose Vitamin D 25-OH Total 06/01/24 E55.9 - Vitamin D deficiency, unspecified, E78.5 - Hyperlipidemia, unspecified, H91.90 - Unspecified hearing loss, unspecified ear, M81.0 - Age-related osteoporosis without current pathological fracture, R73.01 - Impaired fasting glucose
== END 2024-06-01 12:42 | disposition home or self-care (01) ==
PROVIDERS: PCP Internal Medicine; Visit Provider Internal Medicine
DX: M81.0 Age-related osteoporosis without current pathological fracture (principal); G30.9 Alzheimer's disease, unspecified; F02.80 Dementia in other diseases classified elsewhere, unspecified severity, without behavioral disturbance, psychotic disturbance, mood disturbance, and anxiety; E55.9 Vitamin D deficiency, unspecified; E78.5 Hyperlipidemia, unspecified

== ENCOUNTER → 2024-06-01 11:01 | Outpatient (BNVA) | payer OTHER, SELFPAY | PROVIDERS: PCP Internal Medicine; Visit Provider Internal Medicine | DX: M81.0 Age-related osteoporosis without current pathological fracture (principal); E55.9 Vitamin D deficiency, unspecified; E78.5 Hyperlipidemia, unspecified; H91.90 Unspecified hearing loss, unspecified ear; G30.9 Alzheimer's disease, unspecified; F02.80 Dementia in other diseases classified elsewhere, unspecified severity, without behavioral disturbance, psychotic disturbance, mood disturbance, and anxiety | CPT/HCPCS: 99212 ==

== ENCOUNTER 2024-12-16 11:53 | Outpatient (AMB) | payer OTHER, SELFPAY ==
--- NOTE | 2024-12-16 11:56 | A.OFFVIS_ITS ---
Vital Signs 12/16/24 11:57 Height 4 ft 10.5 in Intake Visit Reasons: 6 Weeks Accompanied by: Family/Other Allergies No Known Allergies Allergy (Verified 12/16/24 11:57) Medication List - Last Reconciled 12/16/24 by Roselia Preston CNP alendronate 70 mg PO QWEEK atorvastatin 10 mg PO DAILY coenzyme Q10 (Ultra CoQ10) 50 mg PO DAILY gabapentin 100 mg PO TID ibuprofen (Advil) 200 mg PO Q6H PRN lisinopril 10 mg PO DAILY memantine 10 mg PO BID 90 days risperidone 0.5 mg orally 1 tablet at bedtime and 1 tablet as needed; 90 days sertraline 25 mg PO DAILY 90 days HPI Comments Details: 89 yo woman with HTN, CKD, and dementia. She was here with family. Current combination of medication seemed to be helping and family was happy with it. She was having more good days. She could still be agitated at times, but it was less often and not as bad. Gabapentin seemed to be helping with jumping in legs. She was living alone. 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 Her son drove 3 hours each day to be with her. She would unplug things around the house, but no safety concerns. No falls. [facility] Medical History (Updated 12/16/24 @ 12:00 by Roselia Preston CNP) Pain in hip joint Alzheimer's dementia Anemia Hearing impaired Memory deficit Dyslipidemia Impaired fasting glucose CKD (chronic kidney disease) Vitamin D deficiency Osteoporosis Surgical History History of cataract surgery Family History Father No problems noted. Mother No problems noted. Social History Housing: Apartment Alcohol intake: never Patient Tobacco Use Status: Never used Tobacco e-Cigarette/Vaping Use: Never Used Current occupational status: retired Cognitive needs: No Hearing needs: Yes Vision needs: Yes Review of Systems Const Denies chills, Denies daytime sleepiness, Denies difficulty sleeping, Denies fatigue, Denies fever(s), Denies frequent falls, Denies headache(s), Denies increased appetite, Denies poor appetite, Denies snoring, Denies weakness, Denies weight gain and Denies weight loss Eyes Denies loss of vision ENT Denies vertigo, Denies dizziness and Denies headache(s) Card Denies chest pain at rest, Denies chest pain with activity, Denies syncope, Denies leg edema and Denies palpitations Resp Denies snoring GI Denies constipation, Denies heartburn, Denies diarrhea and Denies nausea Denies urinary frequency, Denies urinary incontinence and Denies urinary urgency Musc Denies abnormal gait, Denies numbness and Denies tingling Skin/Breast Denies dry skin and Denies rash Neuro Denies abnormal gait, Denies vertigo, Denies dizziness, Denies syncope, Denies frequent falls, Denies headache(s), Denies lack of coordination, Denies loss of vision, Reports memory loss, Denies numbness, Reports restless legs, Denies seizure-like activity, Denies tingling, Denies paresthesias, Denies tremor(s) and Denies weakness Psych Denies anxiety, Denies depression, Denies auditory hallucinations, Reports memory loss, Reports mood swings, Denies visual hallucinations and Denies suicidal ideation Endo Denies fatigue and Denies palpitations Physical Exam Const Other: General Appearance:? normal, in no acute distress. Skin:? no rashes, no significant birthmarks. Heart:? S1, S2 normal, no murmurs. Lungs:? clear anteriorly and posteriorly. Extremities:? no edema. Psych:? alert Neuro Other: Mental Status:?Alert and awake with normal sp speech, comprehension and affect. She was more calm today once in the office and engaged in conversation. She was able to tell me who she was here with, her age, and birthday Cranial Nerves:?Pupils are equal, round and reactive to light. External occular muscles are intact. Visual vaughan are full. Face is symmetrical. Facial sensations are normal. Tongue is midline. Palate elevates symmetrically. Shoulder shrugging is normal. Hearing to bedside conversation is impaired. Sensory Exam:?....? Coordination:?No ataxia,?no titubation.? Gait Exam: Within normal limits. Extrapyramidal System:?No tremor, rigidity with normal facial expressions.? Pronator Drift:?Not present.? Involuntary Movements:?No tremors seen.? Speech:?Normal.? Assessment & Plan Assessment & Plan (1) Alzheimer's dementia: Code(s): G30.9 - Alzheimer's disease, unspecified; F02.80 - Dementia in other diseases classified elsewhere, unspecified severity, without behavioral disturbance, psychotic disturbance, mood disturbance, and anxiety Category: Medical Qualifiers: Alzheimer's disease onset: unspecified onset Dementia behavioral or psychological symptom: with mood disturbance Dementia severity: unspecified severity Qualified Code(s): G30.9 - Alzheimer's disease, unspecified; F02.83 - Dementia in other diseases classified elsewhere, unspecified severity, with mood disturbance Plan: Continue sertraline 25mg 1 tablet daily Continue memantine 10mg 1 tablet twice a day Continue risperidone 0.5mg 1 tablet at bedtime and 1 tablet as needed (2) Restless leg syndrome: Code(s): G25.81 - Restless legs syndrome Category: Medical Plan: Continue gabapentin 100mg 1 capsule three times a day. Plan Meds tried: Quetiapine (25mg did not work and had side effects with 50mg) Medications: New gabapentin 100 mg PO TID 270 caps 1RF 90 days risperidone 0.5 mg orally 1 tablet at bedtime and 1 tablet as needed; 180 tabs 1RF 90 days Refilled memantine 10 mg PO BID 180 tabs 1RF 90 days Coding Level of Care Code Est Pt Level 4 (42571) Diagnoses Alzheimer's dementia with mood disturbance, unspecified dementia severity, unspecified timing of dementia onset G30.9; F02.83 Alzheimer's disease onset: unspecified onset Dementia behavioral or psychological symptom: with mood disturbance Dementia severity: unspecified severity Restless leg syndrome G25.81
== END 2024-12-16 12:23 | disposition home or self-care (01) ==
LOC: HO.HSM 11:54
PROVIDERS: PCP Internal Medicine; Referring Provider Internal Medicine; Visit Provider Registered Nurse
DX: G30.9 Alzheimer's disease, unspecified (principal); F02.83 Dementia in other diseases classified elsewhere, unspecified severity, with mood disturbance; G25.81 Restless legs syndrome
CPT/HCPCS: 99214

== ENCOUNTER → 2024-12-16 11:53 | Outpatient (BNVA) | payer OTHER, SELFPAY | PROVIDERS: PCP Internal Medicine; Referring Provider Internal Medicine; Visit Provider Registered Nurse | DX: I10 Essential (primary) hypertension (principal); G30.9 Alzheimer's disease, unspecified; F02.80 Dementia in other diseases classified elsewhere, unspecified severity, without behavioral disturbance, psychotic disturbance, mood disturbance, and anxiety; G25.81 Restless legs syndrome; N18.9 Chronic kidney disease, unspecified | CPT/HCPCS: 99212 ==

== ENCOUNTER 2025-03-22 11:58 | Outpatient (AMB) | payer OTHER, SELFPAY ==
--- NOTE | 2025-03-22 12:01 | MHC.OFFVIS ---
Intake Visit Reasons: 3m AD Allergies No Known Allergies Allergy (Verified 03/22/25 12:02) Medication List - Last Reconciled 03/22/25 by Roselia Preston CNP alendronate 70 mg PO QWEEK atorvastatin 10 mg PO DAILY coenzyme Q10 (Ultra CoQ10) 50 mg PO DAILY gabapentin 100 mg PO TID 90 days ibuprofen (Advil) 200 mg PO Q6H PRN lisinopril 10 mg PO DAILY memantine 10 mg PO BID 90 days risperidone 0.5 mg orally 1 tablet at bedtime and 1 tablet as needed; 90 days sertraline 25 mg PO DAILY 90 days HPI Comments Details: 89-year-old woman with HTN, CKD, and dementia. She was here with family. Family said she was slipping some. She was a bit more forgetful. She sometimes did not recognize her own apartment and sometimes had trouble finding the bathroom in her apartment. She was walking more slowly, but no falls. Appetite was not so good, and she preferred sweets. Current combination of medication seemed to be helping, although she could still be agitated at times. Gabapentin seemed to be helping with jumping in legs. Sleep was okay.. She was living alone. Her son drove [address] day to be with her and she had [employer] for few hours a week. She did not have a stove in her apartment. Family denied any safety concerns. [facility] Medical History (Updated 12/16/24 @ 12:00 by Roselia Preston CNP) Pain in hip joint Alzheimer's dementia Anemia Hearing impaired Memory deficit Dyslipidemia Impaired fasting glucose CKD (chronic kidney disease) Vitamin D deficiency Osteoporosis Surgical History History of cataract surgery Family History Father No problems noted. Mother No problems noted. Social History Housing: Apartment Alcohol intake: never Patient Tobacco Use Status: Never used Tobacco e-Cigarette/Vaping Use: Never Used Current occupational status: retired Cognitive needs: No Hearing needs: Yes Vision needs: Yes Review of Systems Const Denies chills, Denies daytime sleepiness, Denies difficulty sleeping, Denies fatigue, Denies fever(s), Denies frequent falls, Denies headache(s), Denies increased appetite, Denies poor appetite, Denies snoring, Denies weakness, Denies weight gain and Denies weight loss Eyes Denies loss of vision ENT Denies vertigo, Denies dizziness and Denies headache(s) Card Denies chest pain at rest, Denies chest pain with activity, Denies syncope, Denies leg edema and Denies palpitations Resp Denies snoring GI Denies constipation, Denies heartburn, Denies diarrhea and Denies nausea Denies urinary frequency, Denies urinary incontinence and Denies urinary urgency Musc Denies abnormal gait, Denies numbness and Denies tingling Skin/Breast Denies dry skin and Denies rash Neuro Denies abnormal gait, Denies vertigo, Denies dizziness, Denies syncope, Denies frequent falls, Denies headache(s), Denies lack of coordination, Denies loss of vision, Reports memory loss, Denies numbness, Reports restless legs, Denies seizure-like activity, Denies tingling, Denies paresthesias, Denies tremor(s) and Denies weakness Psych Denies anxiety, Denies depression, Denies auditory hallucinations, Reports memory loss, Reports mood swings, Denies visual hallucinations and Denies suicidal ideation Endo Denies fatigue and Denies palpitations Physical Exam Const Other: General Appearance:? normal, in no acute distress. Skin:? no rashes, no significant birthmarks. Heart:? S1, S2 normal, no murmurs. Lungs:? clear anteriorly and posteriorly. Extremities:? no edema. Psych:? alert Neuro Other: Mental Status:?Alert and awake with normal sp speech, comprehension and affect. She was calm today in the office and engaged in conversation. She was able to tell me who she was here with and her birthday. She could not tell me her age (says she is 89). Cranial Nerves:?Pupils are equal, round and reactive to light. External occular muscles are intact. Visual vaughan are full. Face is symmetrical. Facial sensations are normal. Tongue is midline. Palate elevates symmetrically. Shoulder shrugging is normal. Hearing to bedside conversation is impaired. Sensory Exam:?....? Coordination:?No ataxia,?no titubation.? Gait Exam: In wheelchair. Extrapyramidal System:?No tremor, rigidity with normal facial expressions.? Pronator Drift:?Not present.? Involuntary Movements:?No tremors seen.? Speech:?Normal.? Assessment & Plan Assessment & Plan (1) Alzheimer's dementia: Code(s): G30.9 - Alzheimer's disease, unspecified; F02.80 - Dementia in other diseases classified elsewhere, unspecified severity, without behavioral disturbance, psychotic disturbance, mood disturbance, and anxiety Category: Medical Qualifiers: Alzheimer's disease onset: unspecified onset Dementia severity: unspecified severity Dementia behavioral or psychological symptom: with mood disturbance Qualified Code(s): G30.9 - Alzheimer's disease, unspecified; F02.83 - Dementia in other diseases classified elsewhere, unspecified severity, with mood disturbance Plan: Continue sertraline 25mg 1 tablet daily. Continue memantine 10mg 1 tablet twice a day. Continue risperidone 0.5mg 1 tablet at bedtime and 1 tablet as needed. Follow up in 6 months or sooner as needed. (2) Restless leg syndrome: Code(s): G25.81 - Restless legs syndrome Category: Medical Plan: Continue gabapentin 100mg 1 capsule three times a day. Plan Meds tried: Quetiapine (25mg did not work and had side effects with 50mg) Medications: Refilled risperidone 0.5 mg orally 1 tablet at bedtime and 1 tablet as needed; 180 tabs 1RF 90 days memantine 10 mg PO BID 180 tabs 1RF 90 days sertraline 25 mg PO DAILY 90 tabs 1RF 90 days Coding Level of Care Code Est Pt Level 4 (87078) Diagnoses Alzheimer's dementia with mood disturbance, unspecified dementia severity, unspecified timing of dementia onset G30.9; F02.83 Alzheimer's disease onset: unspecified onset Dementia severity: unspecified severity Dementia behavioral or psychological symptom: with mood disturbance Restless leg syndrome G25.81
== END 2025-03-22 12:24 | disposition home or self-care (01) ==
LOC: HO.HSM 11:59
PROVIDERS: PCP Internal Medicine; Visit Provider Registered Nurse
DX: G30.9 Alzheimer's disease, unspecified (principal); F02.83 Dementia in other diseases classified elsewhere, unspecified severity, with mood disturbance; G25.81 Restless legs syndrome
CPT/HCPCS: 99214

== ENCOUNTER → 2025-03-22 11:58 | Outpatient (BNVA) | payer OTHER, SELFPAY | PROVIDERS: PCP Internal Medicine; Visit Provider Registered Nurse | DX: G30.9 Alzheimer's disease, unspecified (principal); F02.83 Dementia in other diseases classified elsewhere, unspecified severity, with mood disturbance; G25.81 Restless legs syndrome | CPT/HCPCS: 99212 ==